=== PATIENT | male | born 1985 ===

== ENCOUNTER 2020-07-13 08:16 | Emergency (ER) | payer OTHER, SELFPAY ==
[2020-07-13 09:11] VITALS: BP 124/80; PULSE 85; RESP 16; TEMP 37.1; O2SAT 98; BMI 37.1
--- NOTE | 2020-07-13 09:24 | ED_ITS ---
HPI - Back Pain/Injury General Chief Complaint: Back Pain/Injury Stated Complaint: back pain Time Seen by Provider: 07/13/20 09:21 Source: patient Mode of arrival: ambulatory Limitations: no limitations History of Present Illness HPI Narrative: 34 y/o male otherwise healthy who presenting with worsening atraumatic left lower back pain x1 week. 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 He states the pain now radiates down his left leg and he is having difficultly walking. He denies numbness, tingling, leg weakness, urinary incontinence, hesitancy or frequency. He has not been taking any medications for the pain. MD elicited complaint: back pain Onset (ago): day(s) (7) Timing: constant Severity: moderate Similar Symptoms Previously: No Quality: sharp and aching Location: left lower back Radiation: left upper leg Exacerbating factors: movement and walking Relieving factors: immobilization Context: unknown Associated symptoms: difficulty walking and loss of sensation in lower extremities Related Data Previous Rx's Medication Instructions Recorded cyclobenzaprine 10 mg PO TID PRN #12 tab 07/13/20 ibuprofen 600 mg PO Q8H PRN #20 tab 07/13/20 lidocaine [Lidoderm] 1 patch TOPICAL DAILY #15 ea 07/13/20 tramadol 50 mg PO Q8H PRN #6 tab 07/13/20 Allergies Allergy/AdvReac Type Severity Reaction Status Date / Time No Known Allergies Allergy Verified 07/13/20 09:11 Review of Systems Review of Systems: Constitutional: No Fever, No Chills Cardiovascular: No Chest Pain, No SOB Respiratory: No Cough, No Sputum Gastrointestinal: No Nausea, No Vomiting, No Diarrhea, No abdominal Pain Genitourinary: No Dysuria, No Urinary Frequency, No Hematuria Musculoskeletal: + joint pain, + Myalgias Skin: No Skin Lesions, No rash Neuro: No Weakness, No Numbness Heme/Lymph: No Bruising, No Lymphadenopathy Endocrine: No Polyuria, No Polydipsia PMFSH Past Medical History Attestation statement: The following information was validated with the patient. Medical History Asthma Testicular cyst Social History Social History Smoking Status: Current every day smoker Use of substances other than those prescribed or required for medical reasons: No Advance Directives: No Advance Directives Information Provided: No Physical Exam Vital Signs: Vital Signs: Last Vital Signs Temp 98.7 F 07/13/20 09:11 Pulse 85 07/13/20 09:11 Resp 16 07/13/20 09:11 BP 124/80 07/13/20 09:11 Pulse Ox 98 07/13/20 09:11 Body Mass Index 37.1 Appearance: Alert. Oriented X3. No acute distress. HEENT: normal inspection CVS: Normal heart rate and rhythm. Pulses normal. Respiratory: No respiratory distress. Skin: Skin warm and dry. Normal skin color. Normal skin turgor. No rashes. Back: normal inspection, tender left upper lumbar area with limited spinal flexion due to pain. no spinal tenderness. +straight leg raise test Extremities: atraumatic Neuro: Oriented X 3. No motor deficit. No sensory deficit. walks with limping gait Course Course Course Narrative: 34 y/o male presenting with 1 week of left lower back pain, now radiating down left leg. No injury but does lifting at work. No red flag symptoms of LBP. XR normal. Given toradol for pain with some improvement. Will treat for sciatica with NSAID, muscle relaxer and PRN tramadol for severe pain. Management discussed with patient. He will follow up with his PCP next week for further management. Stable for d/c. MDM - Back Pain/Injury Differential Diagnosis Differential diagnosis: Likely lumbar radiculopathy, sciatica, strain of lumbar region, renal colic and pyelonephritis Medical Records Attestation: I reviewed the patient's medical records. Critical Care Time Critical Care Time Critical Care Time: No Discharge Plan Discharge Clinical Impression: Sciatica Qualifiers: Laterality: left Qualified Code(s): M54.32 - Sciatica, left side Patient Disposition: Home, Self-Care Instructions: Sciatica (ED), Acute Low Back Pain (ED), Lower Back Exercises (ED) Additional Instructions: Your x-ray today was normal. No bending, lifting >10 lbs or twisting. Use ice several times per day for 20 minutes at a time for the next 48 hours and then change to heat. Take medications as prescribed to help with pain and discomfort. Follow up with your Primary Care Doctor this week. If your pain worsens, if you develop new numbness, tingling, weakness, loss of function or incontinence call 911 or come back to the ER right away for evaluation. Prescriptions: New cyclobenzaprine 10 mg tablet 10 mg PO TID PRN (Reason: muscle spasm) Qty: 12 RF: 0 lidocaine [Lidoderm] 5 % adhesive patch,medicated 1 patch topical DAILY Qty: 15 RF: 0 ibuprofen 600 mg tablet 600 mg PO Q8H PRN (Reason: pain) Qty: 20 RF: 0 tramadol 50 mg tablet 50 mg PO Q8H PRN (Reason: severe pain (scale score 7-10)) Qty: 6 RF: 0 Stand Alone Forms: Work/School Release Discharge Date/Time: 07/13/20 10:09
--- NOTE | 2020-07-13 09:30 | XR_ITS ---
EXAMINATION: XR LUMBOSACRAL SPINE WITH OBLIQUES CLINICAL INFORMATION: Back pain COMPARISON: None TECHNIQUE: AP, both oblique, and lateral views of the lumbar spine. Lateral view of the lumbosacral junction. FINDINGS: Bone alignment is normal. No fracture or dislocation is seen. Disc spaces are normal. Facet joints are normal. Paraspinal soft tissues are normal. XR/XR lumbar spine 4V min IMPRESSION: Unremarkable examination.
[2020-07-13] MEDS: Acetaminophen 325 MG TABLET 975 MG PO (09:49)
[2020-07-13] MEDS: Ketorolac Tromethamine 30 MG/ML VIAL IM (09:51)
== END 2020-07-13 10:09 | disposition home or self-care (01) ==
LOC: HO.ED 09:54
PROVIDERS: Emergency Provider Internal Medicine
DX: M54.42 Lumbago with sciatica, left side (principal); F17.200 Nicotine dependence, unspecified, uncomplicated
CPT/HCPCS: 72110; 96372; 99283; 99284; J1885

== ENCOUNTER 2020-09-19 22:20 | Emergency (ER) | payer OTHER, SELFPAY ==
[2020-09-19 23:14] VITALS: BP 128/79; PULSE 81; RESP 16; TEMP 36.8; O2SAT 97; BMI 33.9
[2020-09-20] MEDS: oxyCODONE HCl Immed Release 5 MG TABLET 10 MG PO (00:07)
[2020-09-20] MEDS: dexAMETHasone 2 MG TABLET 10 MG PO (00:07)
--- NOTE | 2020-09-21 21:22 | ED.BACK ---
HPI - Back Pain/Injury General Chief Complaint: Back Pain/Injury Stated Complaint: back pain Time Seen by Provider: 09/19/20 23:32 Source: patient Mode of arrival: ambulatory Limitations: no limitations History of Present Illness HPI Narrative: pt with hx of chronic back pain for >10 years never had MRI, comes for increase low back pain for days radiating to L leg similar to that in past, no recent injury, no leg weakness no bladder or bowel involvement MD elicited complaint: back pain Pertinent past history: prior back pain Onset (ago): year(s) Timing: intermittent Severity: moderate Similar Symptoms Previously: Yes Quality: dull Location: lumbar spine Radiation: left upper leg and right upper leg Exacerbating factors: none Relieving factors: none Associated symptoms: denies other symptoms Related Data Previous Rx's Medication Instructions Recorded cyclobenzaprine 10 mg PO TID PRN #12 tab 07/13/20 ibuprofen 600 mg PO Q8H PRN #20 tab 07/13/20 lidocaine [Lidoderm] 1 patch TOPICAL DAILY #15 ea 07/13/20 tramadol 50 mg PO Q8H PRN #6 tab 07/13/20 erythromycin 5 mg/gram (0.5 %) eye 1 appl OPHTHALMIC (EYE) QID 7 Days 08/27/20 ointment #3.5 g cyclobenzaprine 10 mg PO Q8H #20 tab 09/19/20 oxycodone 5 mg PO Q6H PRN #20 tab 09/19/20 prednisone 40 mg PO DAILY #10 tab 09/19/20 Allergies Allergy/AdvReac Type Severity Reaction Status Date / Time No Known Allergies Allergy Verified 08/27/20 11:27 Review of Systems Review of Systems: Yes all other systems are reviewed and are negative [facility] Past Medical History Medical History Asthma Testicular cyst Social History Social History Alcohol intake: current Alcohol intake frequency: a few times a month Alcohol type: beer Smoking Status: Current every day smoker Physical Exam Vital Signs: Vital Signs: Last Vital Signs Temp 98.3 F 09/19/20 23:14 Pulse 81 09/19/20 23:14 Resp 16 09/19/20 23:14 BP 128/79 09/19/20 23:14 Pulse Ox 97 09/19/20 23:14 Body Mass Index 33.9 Const: General: cooperative Nutritional Appearance: average body habitus Orientation/consciousness: oriented to person, oriented to place and oriented to time Limitations: no limitations HENMT: Head: Yes normal to inspection Mouth: Normal oral and palatal mucosa present Eyes: General: appearance normal, both eyes and all related structures Pupils: Equal, round and reactive pupils present EOM: EOMs intact bilaterally Neck: Neck: Yes normal visual inspection and Yes full ROM Thyroid: Thyroid normal Lymphatic: no lymphadenopathy noted Resp: Effort & Inspection: normal respiratory effort and able to speak in complete sentences Auscultation: clear to auscultation bilaterally Cardio: Palpation: normal PMI Rate: regular rate Rhythm: regular rhythm and abnormal rhythm Heart sounds: S1 normal heart sound present and S2 normal heart sound present GI: Inspection: Yes normal to inspection Palpation (GI): Soft to palpation and nontender : General: Yes no CVA tenderness Back/Spine/Pelvis: Back: no CVA tenderness Thoracic/Lumbar Spine: thoracic and lumbar spine normal to inspection, paraspinal muscle tenderness, thoraco-lumbar spasm, lumbar spinal tenderness and straight leg raise positive left Skin: General skin exam: no rashes or lesions noted Neuro: General: oriented to person, oriented to place and oriented to time Cranial nerves: Yes CN's II-XII intact bilaterally and Yes Equal, round and reactive pupils present Cognition (Neuro): normal cognition Gait exam (Neuro): Normal gait present Motor exam (neuro): 5/5 motor strength present throughout Sensory Exam: Normal double simultaneous stimulation for sensation Extrem: General: Yes normal to inspection, Yes full ROM and Yes no pedal edema Psych: Mental Status: mental status grossly normal MDM - Back Pain/Injury MDM Narrative Medical decision making narrative: pt with chronic back pain for years increase pain to L leg similar to in past, no signs of cord compression , clinically L sciatica will discharge at home on analgesics and muscle relaxants Differential Diagnosis Differential diagnosis: Likely sciatica and strain of lumbar region Discharge Plan Discharge Clinical Impression: Strain of lumbar region Qualifiers: Encounter type: initial encounter Qualified Code(s): S39.012A - Strain of muscle, fascia and tendon of lower back, initial encounter Patient Disposition: Home, Self-Care Instructions: Chronic Back Pain (DC) Prescriptions: New cyclobenzaprine 10 mg tablet 10 mg PO Q8H Qty: 20 RF: 0 prednisone 20 mg tablet 40 mg PO DAILY Qty: 10 RF: 0 oxycodone 5 mg tablet 5 mg PO Q6H PRN (Reason: Pain, Moderate) Qty: 20 RF: 0 No Action cyclobenzaprine 10 mg tablet 10 mg PO TID PRN (Reason: muscle spasm) Qty: 12 RF: 0 lidocaine [Lidoderm] 5 % adhesive patch,medicated 1 patch topical DAILY Qty: 15 RF: 0 ibuprofen 600 mg tablet 600 mg PO Q8H PRN (Reason: pain) Qty: 20 RF: 0 tramadol 50 mg tablet 50 mg PO Q8H PRN (Reason: severe pain (scale score 7-10)) Qty: 6 RF: 0 erythromycin 5 mg/gram (0.5 %) ointment 1 appl ophthalmic (eye) QID 7 Days Qty: 3.5 RF: 0 Referrals: Katherin Fontenot MD [Physician] - 1 week Stand Alone Forms: Work/School Release Interventions: ED Discharge Assessment Last Done: 09/20/20 00:30 Discharge Date/Time: 09/20/20 00:52 Print Language: Lithuanian
== END 2020-09-20 00:52 | disposition home or self-care (01) ==
PROVIDERS: Emergency Provider Internal Medicine
DX: S39.012A Strain of muscle, fascia and tendon of lower back, initial encounter (principal); X58.XXXA Exposure to other specified factors, initial encounter; J45.909 Unspecified asthma, uncomplicated; F17.200 Nicotine dependence, unspecified, uncomplicated; Y93.9 Activity, unspecified; Y92.9 Unspecified place or not applicable; Y99.9 Unspecified external cause status
CPT/HCPCS: 99283; 99284; J8540

== ENCOUNTER 2020-12-15 12:30 | Emergency (ER) | payer OTHER, SELFPAY ==
--- NOTE | ~2020-12-15 | XR_ITS ---
EXAMINATION: XR SOFT TISSUE NECK CLINICAL INDICATION: Swallowed foreign body COMPARISON: None TECHNIQUE: 2 views of the soft tissue neck were obtained. FINDINGS: Soft tissue films of the neck demonstrate a normal larynx, pharynx and upper trachea. No soft tissue swelling or opaque foreign body is demonstrated. XR/XR soft tissue neck IMPRESSION: Unremarkable examination.
[2020-12-15 12:35] VITALS: BP 128/77; PULSE 110; RESP 18; TEMP 36.6; O2SAT 97; BMI 33.4
[2020-12-15] MEDS: Lidocaine HCl Viscous 2 % 15 ML SOLUTION MUCOUS MEM (13:58)
--- NOTE | 2020-12-15 14:12 | ED_ITS ---
HPI - Skin/Abscess/Foreign Bdy General Chief complaint: General Medical Stated complaint: swallowed foreign object Time Seen by Provider: 12/15/20 12:48 Source: patient and family Mode of arrival: ambulatory Limitations: language barrier (Italian Speaking ) History of Present Illness HPI narrative: 35-year-old male presenting to the ED with complaints of a possible foreign body in his throat. He reports he left his drink outside with there were a lot of bees and he believes he might a swallowed a bee. He reports that he feels something crawling in his right side of his throat. Denies any trouble swallowing or breathing. Although reports hoarseness. Denies any other symptoms complaints or concerns at this time. 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) Severity: mild Quality: foreign body sensation (crawling sensation ) Pain Consistency: constant Relieving factors: none Exacerbating factors: other (swallowing ) Context: other ( possible insect) Associated symptoms: other ( hoarseness of his voice) Treatments prior to arrival: other ( he drank tons of fluids) Related Data Previous Rx's Medication Instructions Recorded cyclobenzaprine 10 mg PO TID PRN #12 tab 07/13/20 ibuprofen 600 mg PO Q8H PRN #20 tab 07/13/20 lidocaine [Lidoderm] 1 patch TOPICAL DAILY #15 ea 07/13/20 tramadol 50 mg PO Q8H PRN #6 tab 07/13/20 erythromycin 5 mg/gram (0.5 %) eye 1 appl OPHTHALMIC (EYE) QID 7 Days 08/27/20 ointment #3.5 g cyclobenzaprine 10 mg PO Q8H #20 tab 09/19/20 oxycodone 5 mg PO Q6H PRN #20 tab 09/19/20 prednisone 40 mg PO DAILY #10 tab 09/19/20 Magic Mouthwash 5 ml PO BID #240 ml 12/15/20 Diphen/Lido/Antacid 1:1:1 Allergies Allergy/AdvReac Type Severity Reaction Status Date / Time No Known Allergies Allergy Verified 08/27/20 11:27 Review of Systems Review of Systems: Constitutional : No Weight loss, No Fever, No Chills, No Night Sweats, No Fatigue, NoMalaise ENT/Mouth: Positive foreign body sensation throat, No ear pain, No sore throat, No Difficulty swallowing Cardiovascular : No Chest Pain, No SOB, No Dyspnea on Exertion, No Orthopnea, NoEdema, No Palpitations Respiratory : No Cough, No Sputum, No Wheezing, No Dyspnea Gastrointestinal : No Nausea, No Vomiting, No abdominal pain, No Diarrhea, No blood streaked emesis, No coffee-ground emesis, No gross hematemesis, No blood streak stool, No gross hematochezia, No Melena Genitourinary : No irregular bleeding, No Dysuria, No Urinary Frequency, No Hematuria,No Urinary Incontinence, No Urgency, No Flank Pain Musculoskeletal : No joint pain, No Myalgias, No Joint Swelling Skin : No Skin Lesions, No rash Neuro : No Weakness, No Numbness, No Paresthesias, No Loss of Consciousness, NoDizziness, No Headache Psych : No Social Issues, Heme/Lymph: No Bruising, No Bleeding,No Lymphadenopathy Endocrine : No Polyuria, No Polydipsia, No Temperature Intolerance Yes all other systems are reviewed and are negative [facility] Past Medical History Attestation statement: The following information was validated with the patient. Medical History Asthma Testicular cyst Social History Social History Alcohol intake: current Alcohol intake frequency: a few times a month Alcohol type: beer Advance Directives: No Advance Directives Information Provided: No Physical Exam Vital Signs: Vital Signs: Last Vital Signs Temp 98 F 12/15/20 12:35 Pulse 110 H 12/15/20 12:35 Resp 18 12/15/20 12:35 BP 128/77 12/15/20 12:35 Pulse Ox 97 12/15/20 12:35 Body Mass Index 33.4 vital signs have been reviewed as normal and appeared to be correct. Blood pressure normal. Heart rate normal. Respiration rate normal. Temperature normal. Oxygen saturation normal. Appearance: Alert. Oriented X3. No acute distress. Head: Normal external exam. Normocephalic. Atraumatic. No Barro[place] signs noted. No raccoon eyes noted Eyes: PERRLA. EOMI. Conjunctiva and sclera normal. Eyelids normal. ENT: EAC normal. TM's Normal. Pharynx normal. Uvula midline. Moist mucous membranes. No trismus noted. No drooling noted. No muffled voice noted. no foreign bodies are noted. Neck: Normal inspection. Neck supple. FROM. No adenopathy. Thyroid Normal. No meningeal signs. No neck mass noted. CVS: Normal heart rate and rhythm. Heart sound normal. Pulses normal throughout. No murmurs/rales/gallops. Respiratory: No respiratory distress. Painless inspiration. Breath sounds normal. No wheezes/rales/rhonchi noted. Chest nontender. No accessory muscle usage noted or decreased air movement noted. Abdomen: Soft and nontender. Bowel sounds normal in all 4 quadrants. No distention noted. No organomegaly noted. No visible injury noted. Back: No CVA tenderness. Full range of motion noted. No rashes/lesion/induration/fluctuance or signs of infection noted. Skin: Skin warm and dry. Normal skin color. Normal skin turgor. No rashes/lesions/lacerations noted. Extremities: No lower extremity edema. Extremities exhibit normal range of motion. Extremities nontender. Neuro: Oriented X 3. No motor deficit. No sensory deficit. Reflexes normal. Normal steady gait. No focal neuro deficits noted. Vascular: + radial pulses/+ 2 distal pedal pulses/+2 dorsalis pedis b/l. Normal cap refill. No cyanosis noted to upper extremity nails and lower extremity toes nails. Course Course Course Narrative: X-ray obtained and no foreign bodies noted. I gave the patient viscous lidocaine and he reports symptomatic relief. Patient does not have any trouble swallowing or breathing. Vital signs are stable within normal limits. No trismus or drooling. Will DC home with instructions return if any new or worsening symptoms to follow up with primary care provider. Patient understands agrees with this plan. MDM - Skin/Abscess/Foreign Bdy Medical Records Attestation: I reviewed the patient's medical records. Imaging Data Soft tissue neck x-ray: Attestation: I personally reviewed and interpreted this imaging study as follows: Radiologist's impression: FINDINGS: Soft tissue films of the neck demonstrate a normal larynx, pharynx and upper trachea. No soft tissue swelling or opaque foreign body is demonstrated. XR/XR soft tissue neck IMPRESSION: Unremarkable examination. Discharge Plan Discharge Clinical Impression: Foreign body, swallowed Patient Disposition: Home, Self-Care Instructions: Foreign Body Ingestion (ED) Prescriptions: New Magic Mouthwash Diphen/Lido/Antacid 1:1:1 240 mL suspension 5 ml PO BID Qty: 240 RF: 0 No Action cyclobenzaprine 10 mg tablet 10 mg PO TID PRN (Reason: muscle spasm) Qty: 12 RF: 0 lidocaine [Lidoderm] 5 % adhesive patch,medicated 1 patch topical DAILY Qty: 15 RF: 0 ibuprofen 600 mg tablet 600 mg PO Q8H PRN (Reason: pain) Qty: 20 RF: 0 tramadol 50 mg tablet 50 mg PO Q8H PRN (Reason: severe pain (scale score 7-10)) Qty: 6 RF: 0 cyclobenzaprine 10 mg tablet 10 mg PO Q8H Qty: 20 RF: 0 prednisone 20 mg tablet 40 mg PO DAILY Qty: 10 RF: 0 oxycodone 5 mg tablet 5 mg PO Q6H PRN (Reason: Pain, Moderate) Qty: 20 RF: 0 erythromycin 5 mg/gram (0.5 %) ointment 1 appl ophthalmic (eye) QID 7 Days Qty: 3.5 RF: 0 Referrals: Katherin Fontenot MD [Primary Care Provider] - 2 days Print Language: Italian
== END 2020-12-15 14:42 | disposition home or self-care (01) ==
PROVIDERS: Emergency Provider Emergency Medicine; PCP Internal Medicine
DX: T17.208A Unspecified foreign body in pharynx causing other injury, initial encounter (principal); J45.909 Unspecified asthma, uncomplicated; X58.XXXA Exposure to other specified factors, initial encounter; Y93.9 Activity, unspecified; Y92.89 Other specified places as the place of occurrence of the external cause; Y99.9 Unspecified external cause status
CPT/HCPCS: 70360; 99283

== ENCOUNTER 2020-12-17 16:00 | Emergency (ER) | payer OTHER, SELFPAY | END 2020-12-17 18:50 | disposition left against medical advice (07) | PROVIDERS: Emergency Provider Emergency Medicine | DX: J02.9 Acute pharyngitis, unspecified (principal) ==

== ENCOUNTER 2021-02-08 19:12 | Emergency (ER) | payer OTHER, SELFPAY ==
[2021-02-08 19:29] VITALS: BP 121/78; PULSE 86; RESP 16; TEMP 36.6; O2SAT 97; BMI 35.5
--- NOTE | 2021-02-08 21:50 | ED.BACK ---
HPI - Back Pain/Injury General Chief Complaint: Back Pain/Injury Stated Complaint: Back pain injury Time Seen by Provider: 02/08/21 21:45 History of Present Illness HPI Narrative: Patient complains of left-sided low back pain after lifting boxes at work today no radiation of pain, no numbness weakness or tingling, no changes to bowel or bladder no fever no chills no other injury Related Data Previous Rx's Medication Instructions Recorded cyclobenzaprine 5 mg tablet 5 mg PO TID PRN #10 tab 02/08/21 ibuprofen 600 mg tablet 600 mg PO Q6H PRN #20 tab 02/08/21 oxycodone 5 mg tablet 5 mg PO Q6H PRN #20 tab 02/08/21 albuterol sulfate 2.5 mg INHALATION Q4-6H PRN 30 02/14/21 Days #75 ml albuterol sulfate 90 mcg/actuation 2 puff INHALATION Q6H PRN 30 Days 02/14/21 aerosol inhaler (ProAir HFA) #6.7 g bupropion HCl 150 mg 24 hr tablet, 150 mg PO QAM 90 Days #90 tab 02/14/21 extended release methocarbamol 750 mg tablet 750 mg PO Q8H 30 Days #90 tab 02/14/21 nebulizers (Aeroneb Go Nebulizer) #1 ea 02/14/21 Allergies Allergy/AdvReac Type Severity Reaction Status Date / Time No Known Allergies Allergy Verified 02/14/21 14:33 Review of Systems Review of Systems: Positive for left-sided low back pain Negatives are no fever no chills no dizziness no weakness no headache no neck pain no chest pain or shortness of breath no abdominal pain no changes to bowel or bladder no dysuria no frequency no incontinence no muscle weakness no loss of sensation Yes all other systems are reviewed and are negative PMFSH Past Medical History Source: nursing notes reviewed Medical History (Updated 02/14/21 @ 16:07 by Katherin Irby MD) Asthma Left sided sciatica Mild persistent asthma Mild recurrent major depression Obesity (BMI 35.0-39.9 without comorbidity) Testicular cyst Social History Social History Housing: House Alcohol intake: current Alcohol intake frequency: a few times a month Alcohol type: beer Patient Tobacco Use Status: Current everyday Tobacco user Cigarettes Per Day: 10 e-Cigarette/Vaping Use: Never Used Second Hand Smoke Exposure: No service: No Current occupational status: employed Physical Exam Vital Signs: Vital Signs: Last Vital Signs Temp 97.9 F 02/08/21 19:29 Pulse 86 02/08/21 19:29 Resp 16 02/08/21 19:29 BP 121/78 02/08/21 19:29 Pulse Ox 97 02/08/21 19:29 Body Mass Index 35.5 General appearance no acute distress Head is normocephalic atraumatic Neck is supple nontender Respiratory no distress The back had left lower lumbar soft tissue paraspinal tenderness, no bony tenderness no CVA tenderness, skin was normal no rash no wound no redness Extremities full range of motion x4 Neuro no focal motor or sensory deficits Course Course Course Narrative: Patient with musculoskeletal back pain is treated with analgesic and advised to follow with [facility] for work-related injury Discharge Plan Discharge Clinical Impression: Lumbar strain Patient Disposition: Home, Self-Care Additional Instructions: Follow with [facility] for work related injury Return any time any worse condition or any concerns Prescriptions: New cyclobenzaprine 5 mg tablet 5 mg PO TID PRN (Reason: muscle spasm) Qty: 10 RF: 0 oxycodone 5 mg tablet 5 mg PO Q6H PRN (Reason: pain) Qty: 20 RF: 0 ibuprofen 600 mg tablet 600 mg PO Q6H PRN (Reason: pain) Qty: 20 RF: 0 No Action bupropion HCl 150 mg tablet extended release 24 hr 150 mg PO QAM 90 Days Qty: 90 RF: 0 albuterol sulfate 2.5 mg /3 mL (0.083 %) solution for nebulization 2.5 mg inhalation Q4-6H PRN (Reason: shortness of breath or wheezing) 30 Days Qty: 75 RF: 1 (DME) Aeroneb Go Nebulizer Misc See Rx Instructions .Route Qty: 1 RF: 0 albuterol sulfate [ProAir HFA] 90 mcg/actuation HFA aerosol inhaler 2 puff inhalation Q6H PRN (Reason: shortness of breath or wheezing) 30 Days Qty: 6.7 RF: 2 methocarbamol 750 mg tablet 750 mg PO Q8H 30 Days Qty: 90 RF: 0 Referrals: [facility] [Provider Group] - 2 days (Back pain after lifting boxes at work) Stand Alone Forms: Work/School Release Interventions: ED Discharge Assessment Last Done: 02/08/21 22:29 Discharge Date/Time: 02/08/21 22:31
[2021-02-08] MEDS: Ketorolac Tromethamine 15 MG/ML VIAL 30 MG IM (22:12)
== END 2021-02-08 22:31 | disposition home or self-care (01) ==
PROVIDERS: Emergency Provider Emergency Medicine
DX: S39.012A Strain of muscle, fascia and tendon of lower back, initial encounter (principal); X50.0XXA Overexertion from strenuous movement or load, initial encounter; F17.210 Nicotine dependence, cigarettes, uncomplicated; Y93.89 Activity, other specified; Y92.812 Truck as the place of occurrence of the external cause; Y99.0 Civilian activity done for income or pay
CPT/HCPCS: 96372; 99284; J1885

== ENCOUNTER 2021-04-22 09:44 | Emergency (ER) | payer OTHER, SELFPAY ==
--- NOTE | ~2021-04-22 | XR_ITS ---
EXAMINATION: XR LUMBOSACRAL SPINE CLINICAL INFORMATION: Back pain COMPARISON: 07/13/2020 TECHNIQUE: Three views of the lumbosacral spine. FINDINGS: The vertebral bodies and posterior elements are normal. The disc spaces are preserved and the vertebral alignment is normal. Small endplate osteophytes at L5-S1 noted. The sacroiliac joints are symmetric. The sacrum is intact. Normal bowel gas pattern. The paraspinal soft tissues are normal. XR/XR lumbar spine 2-3V IMPRESSION: Tiny endplate osteophytes at L5-S1. Otherwise unremarkable appearance of the lumbar spine.
[2021-04-22 10:35] VITALS: BP 131/77; PULSE 56; RESP 18; TEMP 36.2; O2SAT 98; BMI 32.5
--- NOTE | 2021-04-22 11:17 | ED_ITS ---
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 Back pain started 2 months ago, described as intermittent pain localized to the lower back radiates down to the left thigh, patient declined any urinary or stool incontinence, no loss of sensation or weakness. No trauma to the back, no recent strenuous activity. Related Data Previous Rx's Medication Instructions Recorded ibuprofen 600 mg tablet 600 mg PO Q6H PRN #20 tab 02/08/21 albuterol sulfate 2.5 mg INHALATION Q4-6H PRN 30 02/14/21 Days #75 ml albuterol sulfate 90 mcg/actuation 2 puff INHALATION Q6H PRN 30 Days 02/14/21 aerosol inhaler (ProAir HFA) #6.7 g bupropion HCl 150 mg 24 hr tablet, 150 mg PO QAM 90 Days #90 tab 02/14/21 extended release methocarbamol 750 mg tablet 750 mg PO Q8H 30 Days #90 tab 02/14/21 nebulizers (Aeroneb Go Nebulizer) #1 ea 02/14/21 lidocaine 5 % topical patch 1 patch TOPICAL DAILY 15 Days #15 03/28/21 ea ibuprofen 600 mg tablet 600 mg PO TID PRN #14 tab 04/22/21 oxycodone 5 mg tablet 5 mg PO Q8H PRN #14 tab 04/22/21 Allergies Allergy/AdvReac Type Severity Reaction Status Date / Time No Known Allergies Allergy Verified 03/27/21 09:11 Review of Systems Review of Systems: All other systems are reviewed and are negative Constitutional: Reports as per HPI and Reports no additional constitutional complaints Eyes: Reports as per HPI and Reports no additional eye complaints Reports system reviewed and no additional complaints, except as documented Cardiovascular: Reports as per HPI and Reports no additional cardiovascular complaints Respiratory: Reports as per HPI and Reports no additional respiratory complaints Gastrointestinal: Reports as per HPI and Reports no additional gastrointestinal complaints Genitourinary: Reports no additional female genitourinary complaints Musculoskeletal: Reports no additional musculoskeletal complaints Skin/Breast: Reports system reviewed and no additional complaints, except as docu Psychiatric: Reports no additional psychiatric complaints Endocrine: Reports no additional endocrine complaints Hematologic/Lymphatic: Reports no additional hematologic/lymphatic complaints Allergic/Immunologic: Reports no additional allergic/immunologic complaints Reports system reviewed and no additional complaints, except as documented and Reports Abnormal speech present [facility] Past Medical History Medical History Asthma Class 1 obesity due to excess calories with body mass index (BMI) of 34.0 to 34.9 in adult Left sided sciatica Lumbar back pain with radiculopathy affecting left lower extremity Mild persistent asthma Mild recurrent major depression Obesity (BMI 35.0-39.9 without comorbidity) Tenderness of scrotum Testicular cyst Surgical History No pertinent past surgical history Family History Family History Mother Hypertension Father No problems noted. Social History Social History Housing: House Alcohol intake: current Alcohol intake frequency: a few times a month Alcohol type: beer Patient Tobacco Use Status: Current everyday Tobacco user Tobacco use type: Cigarette Cigarette Packs Per Day: 1 Cigarettes Per Day: 20 e-Cigarette/Vaping Use: Never Used Second Hand Smoke Exposure: No Advance Directives: No Advance Directives Information Provided: No service: No Current occupational status: employed Current occupational exposures/hazards: No Physical Exam 2 Vital Signs: Vital Signs: Last Vital Signs Temp 97.2 F 04/22/21 10:35 Pulse 56 04/22/21 10:35 Resp 18 04/22/21 10:35 BP 131/77 04/22/21 10:35 Pulse Ox 98 04/22/21 10:35 Body Mass Index 32.5 vital signs have been reviewed as appeared to be correct. Blood pressure normal. Heart rate normal. Respiration rate normal. Temperature normal. Oxygen saturation normal. Appearance: Alert. Oriented X3. No acute distress. Head: Normal external exam. Normocephalic. Atraumatic. No [place] signs noted. No raccoon eyes noted Eyes: PERRLA. EOMI. Conjunctiva and sclera normal. Eyelids normal. ENT: TM's Normal. Pharynx normal. Uvula midline. Moist mucous membranes. No trismus noted. No drooling noted. No muffled voice noted. Neck: Normal inspection. Neck supple. FROM. No adenopathy. Thyroid Normal. No meningeal signs. No neck mass noted. CVS: Normal heart rate and rhythm. Heart sound normal. No murmurs noted. Pulses normal throughout. Respiratory: No respiratory distress. Painless inspiration. Breath sounds normal. No wheezes/rales/rhonchi noted. Chest nontender. No accessory muscle usage noted or decreased air movement noted. Abdomen: Soft and nontender. Bowel sounds normal in all 4 quadrants. No distention noted. No organomegaly noted. No visible injury noted. Back: No CVA tenderness. Full range of motion noted. Midline lumbar region tenderness, no step-off, no deformity. Skin: Skin warm and dry. Normal skin color. Normal skin turgor. No rashes/lesions/lacerations noted. Extremities: No lower extremity edema. Extremities exhibit normal range of motion. Extremities nontender. Neuro: Oriented X 3. Cranial nerve exam: II-XII are grossly intact , light touch sensation and pinprick is intact in the perianal area. No motor deficit. No sensory deficit. Reflexes normal. Course Course Course Narrative: assessment and plan. 35-year-old male with back pain exam is consistent with sciatica, patient does not want x-rays, don't try NSAIDs, patient was given oxycodone in the ED to control his pain, patient works in a [employer] business. Patient was instructed to rest, heating pad, prescribed oxycodone, high dose of ibuprofen. MDM - Back Pain/Injury Lab Data Attestation: I reviewed the patient's lab results. Labs: Lab Results 04/22/21 Range/Units 12:09 Urine Color YELLOW Urine Appearance CLEAR Urine pH 7.0 (5.0-8.0) Ur Specific [place] 1.015 (1.005-1.025) Urine Protein NEG (NEG-TRACE) MG/DL Urine Glucose (UA) NEG (NEG) MG/DL Urine Ketones NEG (NEG) MG/DL Urine Blood NEG (NEG) Urine Nitrite NEG (NEG) Ur Leukocyte Esterase NEG (NEG) Imaging Data lumbar spine x-ray: Radiologist's impression: Tiny endplate osteophytes at L5-S1. Otherwise unremarkable appearance of the lumbar spine. Discharge Plan Discharge Clinical Impression: Acute left lumbar radiculopathy Patient Disposition: Home, Self-Care Instructions: Lumbar Radiculopathy (ED) Prescriptions: New ibuprofen 600 mg tablet 600 mg PO TID PRN (Reason: pain) Qty: 14 RF: 0 oxycodone 5 mg tablet 5 mg PO Q8H PRN (Reason: pain) Qty: 14 RF: 0 No Action lidocaine 5 % adhesive patch,medicated 1 patch topical DAILY 15 Days Qty: 15 RF: 0 ibuprofen 600 mg tablet 600 mg PO Q6H PRN (Reason: pain) Qty: 20 RF: 0 bupropion HCl 150 mg tablet extended release 24 hr 150 mg PO QAM 90 Days Qty: 90 RF: 0 albuterol sulfate 2.5 mg /3 mL (0.083 %) solution for nebulization 2.5 mg inhalation Q4-6H PRN (Reason: shortness of breath or wheezing) 30 Days Qty: 75 RF: 1 (DME) Aeroneb Go Nebulizer Misc See Rx Instructions .Route Qty: 1 RF: 0 albuterol sulfate [ProAir HFA] 90 mcg/actuation HFA aerosol inhaler 2 puff inhalation Q6H PRN (Reason: shortness of breath or wheezing) 30 Days Qty: 6.7 RF: 2 methocarbamol 750 mg tablet 750 mg PO Q8H 30 Days Qty: 90 RF: 0 Referrals: Katherin Fontenot MD [Primary Care Provider] - 2 days Stand Alone Forms: Work/School Release
[2021-04-22] MEDS: Ibuprofen 800 MG TABLET PO (11:34)
[2021-04-22 12:16] LABS: Appearance Urine CLEAR; Color Urine YELLOW; Glucose Urine UA NEG (NEG); Leukocyte Esterase Urine NEG (NEG); Nitrite Urine NEG (NEG); Specific Gravity - Urine 1.015 (1.005-1.025); Urine Blood NEG (NEG); Urine Ketones NEG (NEG); Urine Protein NEG (NEG-TRACE)
[2021-04-22] MEDS: oxyCODONE HCl Immed Release 5 MG TABLET PO (13:01)
== END 2021-04-22 13:10 | disposition home or self-care (01) ==
PROVIDERS: Emergency Provider Emergency Medicine; PCP Internal Medicine
DX: M54.16 Radiculopathy, lumbar region (principal); J45.30 Mild persistent asthma, uncomplicated
CPT/HCPCS: 72100; 81003; 99283; 99284

== ENCOUNTER 2021-05-22 17:55 | Outpatient (REF) | payer OTHER, SELFPAY ==
--- NOTE | ~2021-05-22 | MR_ITS ---
EXAMINATION: MR LUMBAR SPINE WITHOUT CONTRAST CLINICAL INFORMATION: Left-sided sciatica. COMPARISON: Lumbar spine radiographs 04/22/2021. TECHNIQUE: MRI of the lumbar spine was obtained using routine sequences without contrast. FINDINGS: Alignment is normal. Vertebral heights are preserved.. Minimal type I degenerative endplate changes at L5-S1. Type II endplate changes are also visualized at T10-T11 and T11-T12. There is slight loss of intervertebral disc height and T2 signal intensity at L5-S1 related to disc degeneration. The tip of the conus medullaris is located at L1. No mass effect on the conus. Visualized distal cord signal intensity is normal. At L1-L2, L2-L3, L3-L4, and L4-L5 the annular contours are normal. No canal or neuroforaminal compromise at these 4 levels. At L5-S1 there is a broad left central to subarticular protrusion superimposed upon an asymmetrically bulging disc to the right. No canal stenosis. There is asymmetric narrowing of the left subarticular zone causing and subtle displacement of the left traversing S1 nerve roots. Mild to moderate mass effect on the right L5 foraminal nerve root. Limited visualization of the retroperitoneal anatomy reveals no abnormal finding. Psoas and paraspinal muscle groups are symmetric. MR/MR lumbar spine wo con IMPRESSION: There is a broad left central to subarticular protrusion superimposed upon an asymmetrically bulging disc to the right at the level of L5-S1 that causes mild to moderate mass effect on the right L5 foraminal nerve root and subtle displacement of the left traversing S1 nerve roots. Otherwise no substantial mass effect on traversing or foraminal nerve roots elsewhere within the lumbar spine. No canal stenosis.
== END 2021-05-22 17:56 | disposition home or self-care (01) ==
LOC: HO.MRI 17:55
PROVIDERS: Visit Provider Internal Medicine
DX: M54.32 Sciatica, left side (principal); M54.16 Radiculopathy, lumbar region
CPT/HCPCS: 72148

== ENCOUNTER 2021-06-06 16:00 | Outpatient (RCR) | payer OTHER, SELFPAY ==
--- NOTE | 2021-05-02 18:30 | MHC.PT.EP ---
[facility] [place] Office [place] Office [place] Office [address] Jarred Lloyd [address] [phone] F: [phone] F: [phone] F: [phone] F: [phone] Physical Therapy Plan of Care Date of Evaluation: Date of Surgery: Diagnosis: sciatica, L side Assessment: Pt is 35yo M who presents to PT with low back pain radiating into LLE. He presents with current impairments in pain, decreased lumbar ROM, decreased core stab, decreased LE strength. He is extremely TTP throughout lumbar PS and QL L>R. He has fair tolerance for exercise 2* increase in pain this date. He is limited functionally by prolonged sitting, prolonged standing, walking, and stair navigation. He is a good candidate for skilled PT services to address current impairments in order to facilitate return to PLOF. He will be seen for PT 2x/week for 4 weeks and will be reassessed at that time. Frequency and Duration: The patient will be seen 2x/week for 4 weeks Short Term Goals: Pt will be I with HEP to promote self management of symptoms Pt will have centralization of symptoms Usp Goals: Pt will demonstrate full ROM throughout lumbar spine Pt will demonstrate improved posture and squatting mechanics to assist with work related tasks Pt will demonstrate improvements in functional mobility as evidenced by statistically significant improvement in Modified Oswestry Low Back Pain Disability Questionnaire Treatment Plan: Modalities to reduce pain, spasms and effusion. Manual therapy to restore motion and function. Therapeutic exercise to improve strength and flexibility. Neuromuscular re-education for posture and balance. Therapeutic activities to return to functional activities of daily living. Electronically signed by: Eulalia Ivory, PT, DPT Please sign and return to therapist. Thank you for your referral.
--- NOTE | 2021-06-11 11:37 | MHC.PT.DC ---
[facility] [place] [facility] [place] [facility] [place] Office [address] Jarred Lloyd [address] [phone] F: [phone] F: [phone] F: [phone] F: [phone] Physical Therapy Discharge Report Diagnosis: sciatica, L side Date of Surgery: Date of Evaluation: 05/01/21 Date of Discharge: 06/11/21 Treatments to Date: 8 Cancellations to Date: No Shows to Date: Discharge Status: Achieved Goals Improved Function Independent with HEP Discharge Summary: Pt was seen for skilled PT services from 05/01/21-06/06/21. Pt has made excellent progress since SOC. He has improved lumbar ROM noted throughout functional tasks and has improved hip/glute strengthening along with core stability. He has had an overall decrease in pain since SOC. Pt reports no further questions or concerns for PT at last attended visit 06/06/21. Provided pt with updated, printed copy of HEP on last attended visit. Pt is being D/C from skilled PT services. No further PT indicated at this time. Electronically signed by: Eulalia Ivory, PT, DPT Please sign and return to therapist. Thank you for your referral.
== END 2021-06-11 11:36 | disposition home or self-care (01) ==
LOC: HO.PT 16:00
PROVIDERS: PCP Internal Medicine; Visit Provider Internal Medicine
DX: M54.32 Sciatica, left side (principal)
CPT/HCPCS: 97014; 97110; 97112; 97140; 97162; 97530

== ENCOUNTER 2021-06-24 14:19 | Outpatient (REF) | payer OTHER, SELFPAY ==
[2021-06-24 15:11] LABS: Influenza A PCR NEGATIVE (Negative); Influenza B PCR NEGATIVE (Negative); Resp Syncy Virus RNA Qual PCR NEGATIVE (Negative); SARS COV2 PCR INHOUSE POSITIVE (Negative)
== END 2021-06-24 14:20 | disposition home or self-care (01) ==
LOC: HO.LNP 14:19
PROVIDERS: Visit Provider Physician Assistant
DX: R11.0 Nausea (principal); Z20.822 Contact with and (suspected) exposure to COVID-19
CPT/HCPCS: 0241U

== ENCOUNTER → 2021-08-21 13:02 | Outpatient (BNVA) | payer OTHER, SELFPAY | PROVIDERS: PCP Internal Medicine; Visit Provider Nurse Practitioner Family | DX: M47.816 Spondylosis without myelopathy or radiculopathy, lumbar region (principal); M53.3 Sacrococcygeal disorders, not elsewhere classified | CPT/HCPCS: 99202 ==

== ENCOUNTER 2021-09-17 06:07 | Outpatient (REF) | payer OTHER, SELFPAY ==
--- NOTE | ~2021-09-17 | FL_ITS ---
EXAMINATION: XR FLUOROSCOPY WITH IMAGES CLINICAL INFORMATION: Sacrococcygeal disorder. COMPARISON: None. TECHNIQUE: Fluoroscopy performed by Dr. Mariee. Fluoroscopy time: 0.2 minutes DAP: 1.3 Gycm2 Images: 1 FINDINGS: Image demonstrates needle placement over the inferior left sacroiliac joint. FL/FL guidance in treatment room IMPRESSION: Fluoroscopy guidance for pain management procedure.
== END 2021-09-17 06:08 | disposition home or self-care (01) ==
LOC: HO.RADIR 06:07
PROVIDERS: Visit Provider Anesthesiology
DX: M53.3 Sacrococcygeal disorders, not elsewhere classified (principal); M47.816 Spondylosis without myelopathy or radiculopathy, lumbar region; E66.01 Morbid (severe) obesity due to excess calories; J45.30 Mild persistent asthma, uncomplicated; F17.210 Nicotine dependence, cigarettes, uncomplicated; F33.0 Major depressive disorder, recurrent, mild; Z68.33 Body mass index [BMI] 33.0-33.9, adult
CPT/HCPCS: 27096; J3300; Q9967

== ENCOUNTER → 2021-10-15 08:40 | Outpatient (BNVA) | payer OTHER, SELFPAY | PROVIDERS: PCP Internal Medicine; Visit Provider Nurse Practitioner Family | DX: M47.816 Spondylosis without myelopathy or radiculopathy, lumbar region (principal); M53.3 Sacrococcygeal disorders, not elsewhere classified; M62.838 Other muscle spasm | CPT/HCPCS: 99212 ==

== ENCOUNTER 2022-04-24 10:40 | Emergency (ER) | payer OTHER, SELFPAY ==
--- NOTE | ~2022-04-24 | XR_ITS ---
EXAMINATION: XR LUMBOSACRAL SPINE CLINICAL INFORMATION: Back pain, injury COMPARISON: 04/22/2021 TECHNIQUE: Three views of the lumbosacral spine. FINDINGS: Lumbar vertebra have normal height and alignment. No evidence of fractures in the anterior or posterior elements. At L5-S1, there is mild narrowing of the disc space with mild endplate sclerosis and small osteophytes. Findings are similar to those seen on prior exam from 04/22/2021. Sacrum and sacroiliac joints are unremarkable. The soft tissues are grossly normal. XR/XR lumbar spine 2-3V IMPRESSION: * No fracture or malalignment of the lumbar spine. * Mild discovertebral degenerative change of L5-S1.
[2022-04-24 10:58] VITALS: BP 142/93; PULSE 71; RESP 18; TEMP 36.5; O2SAT 98; BMI 35.5
--- NOTE | 2022-04-24 13:33 | ED.BACK ---
HPI - Back Pain/Injury General Chief Complaint: Back Pain/Injury Stated Complaint: Back Pain No Injury Time Seen by Provider: 04/24/22 12:42 Source: patient, RN notes reviewed and old records reviewed Mode of arrival: ambulatory Limitations: no limitations and language barrier History of Present Illness HPI Narrative: 36-year-old male with past medical history of SI joint pain, spondylosis of lumbar spine, obesity, asthma, depression, left-sided sciatica is here today after sustaining back injury at work. Patient states that he was moving heavy object and twisted to the left and started with left gluteal area and left lower back pain. Patient denies any radiation to his lower extremities, to his groin. Denies any urinary or fecal incontinence. Patient reports that he works at [employer] and he frequently has to move heavy objects. Patient has seen pain. Patient had appointment with them in September for SIJ joint injection perform 09/17/2021 patient reports that he was feeling well until he injured his back yesterday MD elicited complaint: back pain and back injury Pertinent past history: prior back pain Onset (ago): day(s) Related Data Previous Rx's Medication Instructions Recorded ibuprofen 600 mg tablet 600 mg PO Q6H PRN pain #20 tabs 02/08/21 albuterol sulfate 2.5 mg/3 mL 2.5 mg (3 mL) inhalation Q4-6H PRN 02/14/21 (0.083 %) solution for nebulization shortness of breath or wheezing 30 days #75 mL albuterol sulfate 90 mcg/actuation 2 puff inhalation Q6H PRN 02/14/21 aerosol inhaler (ProAir HFA) shortness of breath or wheezing 30 days #6.7 grams nebulizers (Aeroneb Go Nebulizer) #1 ea 02/14/21 lidocaine 5 % topical patch 1 patch topical DAILY 15 days #15 03/28/21 ea ibuprofen 600 mg tablet 600 mg PO TID PRN pain #14 tabs 04/22/21 oxycodone 5 mg tablet 5 mg PO Q8H PRN pain #14 tabs 04/22/21 bupropion HCl 150 mg 24 hr tablet, 150 mg PO QAM 90 days #90 tabs 05/08/21 extended release ondansetron HCl 4 mg tablet 4 mg PO Q8-12H PRN nausea and 06/24/21 (Zofran) vomiting #10 tabs tizanidine 4 mg tablet 4 mg PO BEDTIME PRN muscle 08/21/21 spasticity #30 tabs baclofen 5 mg tablet 5 mg PO BID PRN muscle spasm #60 10/15/21 tabs cyclobenzaprine 10 mg tablet 10 mg PO BID PRN muscle spasm #20 04/24/22 tabs ibuprofen 600 mg tablet 600 mg PO Q8H PRN pain #20 tabs 04/24/22 Allergies Allergy/AdvReac Type Severity Reaction Status Date / Time No Known Allergies Allergy Verified 10/15/21 08:55 [facility] Past Medical History Medical History (Updated 04/24/22 @ 15:11 by Halie Small [facility] Asthma Class 1 obesity due to excess calories with body mass index (BMI) of 34.0 to 34.9 in adult Left sided sciatica Lumbar back pain with radiculopathy affecting left lower extremity Mild persistent asthma Mild recurrent major depression Obesity (BMI 35.0-39.9 without comorbidity) Protrusion of lumbar intervertebral disc Tenderness of scrotum Testicular cyst Surgical History No pertinent past surgical history Family History Family History Mother Hypertension Father No problems noted. Social History Social History Housing: House Alcohol intake: current Alcohol intake frequency: a few times a month Alcohol type: beer Patient Tobacco Use Status: Current everyday Tobacco user Tobacco use type: Cigarette Cigarette Packs Per Day: 1 Cigarettes Per Day: 20 e-Cigarette/Vaping Use: Never Used Second Hand Smoke Exposure: No Advance Directives: No Advance Directives Information Provided: Yes service: No Current occupational status: employed Current occupational exposures/hazards: No Physical Exam Vital Signs: Vital Signs: Last Vital Signs Temp 97.7 F 04/24/22 10:58 Pulse 71 04/24/22 10:58 Resp 18 04/24/22 10:58 BP 142/93 H 04/24/22 10:58 Pulse Ox 98 04/24/22 10:58 O2 Del Method 04/24/22 10:58 BMI result Body Mass Index 35.5 Const: General: healthy appearing, no acute distress and well developed Nutritional Appearance: well nourished Orientation/consciousness: patient oriented x3 HEENT: Head: Yes normal to inspection, Yes normocephalic and Yes atraumatic Face and sinus: Yes normal facial exam Mouth: Normal oral and palatal mucosa present Throat: Yes posterior oropharynx normal, Yes tonsils normal and Yes uvula midline Eyes: General: appearance normal, both eyes and all related structures Neck: Neck: Yes normal visual inspection, Yes full ROM and Yes trachea midline Thyroid: Thyroid normal Resp: Effort & Inspection: normal respiratory effort, able to speak in complete sentences, no tracheal deviation and symmetric chest movement Auscultation: clear to auscultation bilaterally : General: Yes no CVA tenderness Back/Spine/Pelvis: Back: no CVA tenderness Cervical Spine: normal cervical lordosis Thoracic/Lumbar Spine: thoracic and lumbar spine normal to inspection and No paraspinal muscle tenderness Pelvis: no pain with anterior-posterior compression Skin: General skin exam: elasticity normal, turgor normal and dry skin Neuro: General: patient oriented x3 Psych: Appearance: grossly normal Mental Status: mental status grossly normal Speech and movement: Normal speech and movement present Affect: normal affect Attitude: cooperative Thought process: Normal thought process present Thought content: Normal thought content present Insight: Good insight present (Psych) Judgement: Good judgement present (Psych) Course Course Course Narrative: 36-year-old male with past medical history of SI joint pain, spondylosis of lumbar spine, obesity, asthma, depression, left-sided sciatica is here today after sustaining back injury at work. Patient states that he was moving heavy object and twisted to the left and started with left gluteal area and left lower back pain. Patient denies any radiation to his lower extremities, to his groin. Denies any urinary or fecal incontinence. Patient reports that he works at [employer] and he frequently has to move heavy objects. Patient has seen pain. Patient had appointment with them in September for SI joint injection perform 09/17/2021 patient reports that he was feeling well until he injured his back yesterday. Upon exam patient reports tenderness to his SI joint, no spinal or paraspinal tenderness. Will medicate patient with cyclobenzaprine will do x-ray. Is no acute processes will send patient home with cyclobenzaprine and to follow-up with pain management again. Patient reports that he does not want a Percocet as it upset his stomach. Reevaluation(s) Reevaluation #1: Patient will be sent home with cyclobenzaprine and ibuprofen. Patient reports relieves from cyclobenzaprine. He will follow-up with pain management next week. Patient is there patient. MDM - Back Pain/Injury Differential Diagnosis Differential diagnosis: Likely lumbar radiculopathy and strain of lumbar region Medical Records Attestation: I reviewed the patient's medical records. Imaging Data x-ray of spine: Radiologist's impression: FINDINGS: Lumbar vertebra have normal height and alignment. No evidence of fractures in the anterior or posterior elements. At L5-S1, there is mild narrowing of the disc space with mild endplate sclerosis and small osteophytes. Findings are similar to those seen on prior exam from 04/22/2021. Sacrum and sacroiliac joints are unremarkable. The soft tissues are grossly normal. XR/XR lumbar spine 2-3V IMPRESSION: *? No fracture or malalignment of the lumbar spine. *? Mild discovertebral degenerative change of L5-S1. ? Discharge Plan Discharge Clinical Impression: Sacroiliac joint pain, Muscle spasm, Strain of lumbar region Patient Disposition: Home, Self-Care Instructions: Lumbar Radiculopathy (ED), Musculoskeletal Pain (ED), Muscle Spasm (ED) Additional Instructions: Benja un seguimiento con choudhury cl?lolly de presi?n arterial y dolor en los pr?ximos 3 a 5 d?as. Enviar? a casa con ciclobenzaprina. Aseg?rese de no conducir yesi?n equipo pesado mientras jess emeka medicamento. Puede regresar al servicio de urgencias si experimenta un dolor cada vez mayor. Prescriptions: New cyclobenzaprine 10 mg tablet 10 mg PO BID PRN (Reason: muscle spasm) Qty: 20 0RF ibuprofen 600 mg tablet 600 mg PO Q8H PRN (Reason: pain) Qty: 20 0RF No Action lidocaine 5 % adhesive patch,medicated 1 patch topical DAILY 15 Days Qty: 15 0RF Rx Instructions: leave on most painful area for up to 12 hrs bupropion HCl 150 mg tablet extended release 24 hr 150 mg PO QAM 90 Days Qty: 90 0RF ibuprofen 600 mg tablet 600 mg PO Q6H PRN (Reason: pain) Qty: 20 0RF ibuprofen 600 mg tablet 600 mg PO TID PRN (Reason: pain) Qty: 14 0RF oxycodone 5 mg tablet 5 mg PO Q8H PRN (Reason: pain) Qty: 14 0RF albuterol sulfate 2.5 mg /3 mL (0.083 %) solution for nebulization 2.5 mg inhalation Q4-6H PRN (Reason: shortness of breath or wheezing) 30 Days Qty: 75 1RF (DME) Aeroneb Go Nebulizer Misc See Rx Instructions .Route Qty: 1 0RF Rx Instructions: As directed albuterol sulfate [ProAir HFA] 90 mcg/actuation HFA aerosol inhaler 2 puff inhalation Q6H PRN (Reason: shortness of breath or wheezing) 30 Days Qty: 6.7 2RF ondansetron HCl [Zofran] 4 mg tablet 4 mg PO Q8-12H PRN (Reason: nausea and vomiting) Qty: 10 0RF baclofen 5 mg tablet 5 mg PO BID PRN (Reason: muscle spasm) Qty: 60 1RF tizanidine 4 mg tablet 4 mg PO BEDTIME PRN (Reason: muscle spasticity) Qty: 30 0RF Referrals: Rafael Mariee MD [Physician] - 1 week Stand Alone Forms: Work/School Release
[2022-04-24] MEDS: Cyclobenzaprine HCl 10 MG TABLET PO (13:48)
== END 2022-04-24 15:20 | disposition home or self-care (01) ==
PROVIDERS: Emergency Provider Emergency Medicine; PCP Internal Medicine
DX: S39.012A Strain of muscle, fascia and tendon of lower back, initial encounter (principal); X50.0XXA Overexertion from strenuous movement or load, initial encounter; M53.3 Sacrococcygeal disorders, not elsewhere classified; M62.830 Muscle spasm of back; Y93.89 Activity, other specified; Y92.512 Supermarket, store or market as the place of occurrence of the external cause; Y99.0 Civilian activity done for income or pay
CPT/HCPCS: 72100; 99283

== ENCOUNTER 2022-09-19 03:11 | Emergency (ER) | payer OTHER, SELFPAY ==
--- NOTE | ~2022-09-19 | CT_ITS ---
EXAMINATION: CT LUMBAR SPINE WITHOUT CONTRAST CLINICAL INFORMATION: L5-S1 herniated disc. COMPARISON: 04/24/2022 TECHNIQUE: Multidetector volumetric imaging of the lumbar spine performed without IV contrast. Coronal and sagittal reformatted images are obtained and reviewed. This CT examination was performed using dose optimization techniques as appropriate, variously including the following: *Automated exposure control *Adjustment of mA and/or kV according to patient size (this includes techniques or standardized protocols for targeted exams where dose is matched to indication/reason for exam; i.e. extremities or head) *Use of iterative reconstruction technique DLP; 524 mGy-cm FINDINGS: No fracture or subluxation. Vertebral body height and alignment maintained. Disc spaces are maintained. The sacroiliac joints are symmetric. The sacrum is intact. Evaluation of disc levels is significantly limited on noncontrast CT . There appears to be a small disc bulge at L5-S1. There is likely mild narrowing of the right neural foramen. No suspicious findings in the visualized abdomen. The paraspinal musculature is symmetric. CT/CT lumbar spine wo IV con IMPRESSION: No acute osseous abnormality. Evaluation of disc levels is limited on noncontrast CT. There appears to be a small disc bulge at L5-S1 with likely mild narrowing of the right neural foramen. This can be evaluated further with MRI if clinically indicated.
[2022-09-19 03:19] VITALS: BP 162/121; PULSE 83; RESP 18; TEMP 36.7; O2SAT 96; BMI 38.0
[2022-09-19 03:36] VITALS: BP 132/76; PULSE 68; RESP 18
--- NOTE | 2022-09-19 03:50 | ED.BACK ---
HPI - Back Pain/Injury General Chief Complaint: Back Pain/Injury Stated Complaint: Lower back pain/pain in legs Time Seen by Provider: 09/19/22 03:19 Source: patient and family Mode of arrival: ambulatory Limitations: no limitations History of Present Illness HPI Narrative: Patient has chronic low back pain had MRI done 06/11 which showed L5-S1 disc herniation with mild to moderate mass effect on the right L5 foraminal nerve root been to pain clinic with steroid shot and physical therapy comes here for increasing pain for last few days getting worse with no recent injury pain radiates to both lower extremities increased on ambulation no motor weakness does not have any pain medication present has not followed up with his PCP no bladder or bowel involvement no sensory loss Related Data Previous Rx's Medication Instructions Recorded ibuprofen 600 mg tablet 600 mg PO Q6H PRN pain #20 tabs 02/08/21 albuterol sulfate 2.5 mg/3 mL 2.5 mg (3 mL) inhalation Q4-6H PRN 02/14/21 (0.083 %) solution for nebulization shortness of breath or wheezing 30 days #75 mL albuterol sulfate 90 mcg/actuation 2 puff inhalation Q6H PRN 02/14/21 aerosol inhaler (ProAir HFA) shortness of breath or wheezing 30 days #6.7 grams nebulizers (Aeroneb Go Nebulizer) #1 ea 02/14/21 lidocaine 5 % topical patch 1 patch topical DAILY 15 days #15 03/28/21 ea ibuprofen 600 mg tablet 600 mg PO TID PRN pain #14 tabs 04/22/21 oxycodone 5 mg tablet 5 mg PO Q8H PRN pain #14 tabs 04/22/21 bupropion HCl 150 mg 24 hr tablet, 150 mg PO QAM 90 days #90 tabs 05/08/21 extended release ondansetron HCl 4 mg tablet 4 mg PO Q8-12H PRN nausea and 06/24/21 (Zofran) vomiting #10 tabs tizanidine 4 mg tablet 4 mg PO BEDTIME PRN muscle 08/21/21 spasticity #30 tabs baclofen 5 mg tablet 5 mg PO BID PRN muscle spasm #60 10/15/21 tabs cyclobenzaprine 10 mg tablet 10 mg PO BID PRN muscle spasm #20 04/24/22 tabs ibuprofen 600 mg tablet 600 mg PO Q8H PRN pain #20 tabs 04/24/22 cyclobenzaprine 10 mg tablet 10 mg PO Q8H #20 tabs 09/19/22 ibuprofen 600 mg tablet 600 mg PO Q6H PRN fever or pain 09/19/22 #30 tabs oxycodone-acetaminophen 5 mg-325 1 tab PO Q6H PRN pain #20 tabs 09/19/22 mg tablet (Percocet) Allergies Allergy/AdvReac Type Severity Reaction Status Date / Time No Known Allergies Allergy Verified 09/19/22 03:22 Review of Systems Review of Systems: Yes all other systems are reviewed and are negative [facility] Past Medical History Medical History Asthma Class 1 obesity due to excess calories with body mass index (BMI) of 34.0 to 34.9 in adult Left sided sciatica Lumbar back pain with radiculopathy affecting left lower extremity Mild persistent asthma Mild recurrent major depression Obesity (BMI 35.0-39.9 without comorbidity) Protrusion of lumbar intervertebral disc Tenderness of scrotum Testicular cyst Surgical History No pertinent past surgical history Family History Family History Mother Hypertension Father No problems noted. Social History Social History Housing: House Alcohol intake: current Alcohol intake frequency: does not drink Alcohol type: beer Patient Tobacco Use Status: Current everyday Tobacco user Tobacco use type: Cigarette Cigarette Packs Per Day: 1 Cigarettes Per Day: 20 Smoked in Last 30 Days: Yes e-Cigarette/Vaping Use: Never Used Second Hand Smoke Exposure: No Use of substances other than those prescribed or required for medical reasons: Yes Substance Use Type: Marijuana Substance Use Frequency: Daily Advance Directives: No Advance Directives Information Provided: Yes service: No Current occupational status: employed Current occupational exposures/hazards: No Physical Exam Vital Signs: Vital Signs: Last Vital Signs Temp 98.0 F 09/19/22 03:19 Pulse 68 09/19/22 03:36 Resp 18 09/19/22 03:36 BP 132/76 09/19/22 03:36 Pulse Ox 96 09/19/22 03:19 O2 Del Method Room Air 09/19/22 03:19 BMI result Body Mass Index 38.0 Appearance: Alert. Oriented X3. In moderate distress Eyes: No pallor or icterus ENT: Pharynx normal. Oral Mucosa moist Neck: Normal inspection. Neck supple. CVS: Normal heart rate and rhythm. Pulses normal. Respiratory: No respiratory distress. Equal air entry bilateral, no wheezing/rales/rhonchi Abdomen: Soft and nontender. Bowel sounds are present, no mass palpable, no CVA tenderness Skin: Skin warm and dry. Normal skin color. Normal skin turgor. Back: Diffuse tenderness lumbar area Extremities: No lower extremity edema. No calf tenderness SLR positive both lower extremity at 45 degrees Neuro: Oriented X 3. No motor deficit. No sensory deficit.No cerebellar signs , cranial nerves II-XII intact Medications Administered Discontinued Medications Generic Name Dose Route Start Last Admin Trade Name Freq PRN Reason Stop Dose Admin Cyclobenzaprine HCl 10 mg 09/19/22 05:17 09/19/22 05:26 Cyclobenzaprine Hcl 10 Mg Tablet PO 09/19/22 05:18 10 mg ONCE ONE Administration Dexamethasone 10 mg 09/19/22 03:51 09/19/22 04:13 Dexamethasone 2 Mg Tablet PO 09/19/22 03:52 10 mg ONCE ONE Administration Morphine Sulfate 10 mg 09/19/22 03:51 09/19/22 04:13 Morphine Sulfate 10 Mg/Ml Cartridge IM 09/19/22 03:52 10 mg ONCE ONE Administration Protocol Oxycodone HCl 10 mg 09/19/22 05:11 09/19/22 05:26 Oxycodone Hcl Immed Release 5 Mg Tablet PO 09/19/22 05:12 10 mg ONCE ONE Administration Discharge Plan Discharge Clinical Impression: Lumbar radiculopathy Patient Disposition: Home, Self-Care Instructions: Lumbar Radiculopathy (ED) Additional Instructions: Take pain medications and muscle relaxant as prescribed Follow-up with neurosurgery/PCP Prescriptions: New cyclobenzaprine 10 mg tablet 10 mg PO Q8H Qty: 20 0RF oxycodone-acetaminophen [Percocet] 5-325 mg tablet 1 tab PO Q6H PRN (Reason: pain) Qty: 20 0RF Rx Instructions: Partial Fill upon patient request. ibuprofen 600 mg tablet 600 mg PO Q6H PRN (Reason: fever or pain) Qty: 30 0RF No Action lidocaine 5 % adhesive patch,medicated 1 patch topical DAILY 15 Days Qty: 15 0RF Rx Instructions: leave on most painful area for up to 12 hrs bupropion HCl 150 mg tablet extended release 24 hr 150 mg PO QAM 90 Days Qty: 90 0RF ibuprofen 600 mg tablet 600 mg PO Q6H PRN (Reason: pain) Qty: 20 0RF ibuprofen 600 mg tablet 600 mg PO TID PRN (Reason: pain) Qty: 14 0RF oxycodone 5 mg tablet 5 mg PO Q8H PRN (Reason: pain) Qty: 14 0RF cyclobenzaprine 10 mg tablet 10 mg PO BID PRN (Reason: muscle spasm) Qty: 20 0RF ibuprofen 600 mg tablet 600 mg PO Q8H PRN (Reason: pain) Qty: 20 0RF albuterol sulfate 2.5 mg /3 mL (0.083 %) solution for nebulization 2.5 mg inhalation Q4-6H PRN (Reason: shortness of breath or wheezing) 30 Days Qty: 75 1RF (DME) Aeroneb Go Nebulizer Misc See Rx Instructions .Route Qty: 1 0RF Rx Instructions: As directed albuterol sulfate [ProAir HFA] 90 mcg/actuation HFA aerosol inhaler 2 puff inhalation Q6H PRN (Reason: shortness of breath or wheezing) 30 Days Qty: 6.7 2RF ondansetron HCl [Zofran] 4 mg tablet 4 mg PO Q8-12H PRN (Reason: nausea and vomiting) Qty: 10 0RF baclofen 5 mg tablet 5 mg PO BID PRN (Reason: muscle spasm) Qty: 60 1RF tizanidine 4 mg tablet 4 mg PO BEDTIME PRN (Reason: muscle spasticity) Qty: 30 0RF Referrals: [facility] [Provider Group] - 2 weeks Interventions: ED Discharge Assessment Last Done: 09/19/22 05:40 Discharge Date/Time: 09/19/22 05:43
--- NOTE | 2022-09-19 03:52 | PC.NURSE ---
pt a&o, no sob or chest pain, pt report back pain and testicle pain. provider aware. pt waiting to be seen.
--- NOTE | 2022-09-19 04:03 | PC.NURSE ---
pt taken to Ct Scan
[2022-09-19] MEDS: dexAMETHasone 2 MG TABLET 10 MG PO (04:13)
[2022-09-19] MEDS: Morphine Sulfate 10 MG/ML CARTRIDGE IM (04:13)
[2022-09-19] MEDS: oxyCODONE HCl Immed Release 5 MG TABLET 10 MG PO (05:26)
[2022-09-19] MEDS: Cyclobenzaprine HCl 10 MG TABLET PO (05:26)
--- NOTE | 2022-09-19 05:28 | PC.NURSE ---
pt medicated per mar for pain management. Will continue to monitor.
--- NOTE | 2022-09-19 05:41 | PC.NURSE ---
Reviewed discharge instructions with pt, pt verbalized understanding. no sign of distress at discharge.
== END 2022-09-19 05:43 | disposition home or self-care (01) ==
PROVIDERS: Emergency Provider Internal Medicine; PCP Internal Medicine
DX: M54.16 Radiculopathy, lumbar region (principal); M54.50 Low back pain, unspecified; F17.210 Nicotine dependence, cigarettes, uncomplicated; F12.90 Cannabis use, unspecified, uncomplicated; E66.9 Obesity, unspecified; Z68.38 Body mass index [BMI] 38.0-38.9, adult; Z79.899 Other long term (current) drug therapy
CPT/HCPCS: 72131; 96372; 99284; J2270; J8540

== ENCOUNTER 2023-03-03 10:49 | Outpatient (AMB) | payer OTHER, SELFPAY ==
[2023-03-03 10:57] VITALS: BP 136/80; BMI 33.1
--- NOTE | 2023-03-03 10:57 | A.OFFPC_ITS ---
Vital Signs 03/03/23 10:57 Height 5 ft 8 in Weight 218 lb BMI 33.1 BP 136/80 Blood Pressure Location Lt brachial Position Sitting Intake Visit Reasons: discoloration of toes Intake Note: Patient here discoloration of nails and in between toes [employer] Required: No Accompanied by: Self / Same As Patient Allergies No Known Allergies Allergy (Verified 03/03/23 11:05) Medication List - Last Reconciled 03/03/23 by Katherin Ibry MD albuterol sulfate 90 mcg/actuation (ProAir HFA) 2 puffs inhalation Q6H PRN 30 days albuterol sulfate 2.5 mg (3 mL) inhalation Q4-6H PRN 30 days nebulizers (Aeroneb Go Nebulizer) As directed Tobacco use date assessed: 09/24/22 Dental Screening Dental Screen Date: 03/03/23 Did you have a dental visit in the last 12 months?: No Did you have a dental problem in the last 6 months where you did not have access to dental care?: No Was dental information given to patient?: Patient has dentist HPI HPI Comments History of Present Illness Details * This is a 37-year-old male with mild asthma that complains toes being itchy and with scaly skin between toes most likely due to athlete's foot. Denies any chest pain shortness breath. Use rescue inhaler less than once a month. [facility] Medical History Asthma Class 1 obesity due to excess calories with body mass index (BMI) of 34.0 to 34.9 in adult Left sided sciatica Lumbar back pain with radiculopathy affecting left lower extremity Mild persistent asthma Mild recurrent major depression Obesity (BMI 35.0-39.9 without comorbidity) Protrusion of lumbar intervertebral disc Tenderness of scrotum Testicular cyst Surgical History No pertinent past surgical history Family History Mother Hypertension Father No problems noted. Social History (Updated 03/03/23 @ 11:17 by Katherin Irby MD) Housing: House Alcohol intake: current Alcohol intake frequency: holidays/special occasions only Alcohol type: beer Patient Tobacco Use Status: Current everyday Tobacco user Tobacco use type: Cigarette Cigarette Packs Per Day: 1 Cigarettes Per Day: 20 e-Cigarette/Vaping Use: Never Used Second Hand Smoke Exposure: No Substance Use Type: Marijuana service: No Current occupational status: employed Current occupational exposures/hazards: No Cognitive needs: No Hearing needs: No Vision needs: No Questionnaire Thrive Questionnaire Date Thrive assessed: 09/24/22 JASVIR-7 AMB Questionnaire JASVIR-7 Date JASVIR - 7 assessed: 09/24/22 Source: Developed by Drs. Juan Erwin, Devi Ortiz, Hector Waite and colleagues, with an educational marco antonio from [employer]. Review of Systems Const All systems reviewed & are unremarkable except as noted in HPI and below Eyes Reports no additional complaints, Denies change in vision and Denies other visual disturbances Card Denies chest pain at rest, Denies chest pain with activity, Denies edema, Denies irregular heart rhythm, Denies claudication, Denies dyspnea, Denies dyspnea on exertion, Denies orthopnea, Denies paroxysmal nocturnal dyspnea and Denies slow heart rate Resp Denies cough, Denies dyspnea and Denies dyspnea on exertion GI Denies abdominal pain, Denies change in bowel habits, Denies excessive flatus, Denies nausea and Denies vomiting Denies urinary hesitancy, Denies urinary incontinence and Denies urinary urgency Musc Denies abnormal gait, Denies atrophy, Denies deformity and Denies limited range of motion Skin/Breast Denies bleeding lesions, Denies changing lesions and Denies rash Neuro Denies abnormal gait and Denies lack of coordination Physical exam (Primary Care) Vital Signs: Last Vital Signs BP 136/80 03/03/23 10:57 BMI result Body Mass Index 33.1 Tobacco/Smoking Status: Tobacco use Status Tobacco use date assessed 09/24/22 03/03/23 11:02 Patient Tobacco Use Status Current everyday Tobacco 03/03/23 11:02 Tobacco use type Cigarette 03/03/23 11:02 e-Cigarette/Vaping Use Never Used 03/03/23 11:02 Thrive Assessment: Date of Thrive Assessment Date Thrive assessed 09/24/22 03/03/23 11:02 Eyes General: appearance normal, both eyes and all related structures Eyelids: Yes eyelids normal Conjunctivae: conjunctivae normal Neck Neck: Yes normal visual inspection and Yes supple Resp Effort & Inspection: normal respiratory effort Auscultation: clear to auscultation bilaterally Cardio Jugular venous distension: no JVD Rate: regular rate Rhythm: regular rhythm Heart sounds: S1 normal heart sound present and S2 normal heart sound present Extrem General: Yes full ROM Assessment and Plan Assessment & Plan (1) Athletes foot: Code(s): B35.3 - Tinea pedis Plan: Start cream (2) Mild asthma: Code(s): J45.909 - Unspecified asthma, uncomplicated Plan: Use rescue inhaler as needed Orders: Orders Lipid Panel Today E78.5 - Hyperlipidemia, unspecified Comprehensive [place]. Panel Fast Today M47.816 - Spondylosis without myelopathy or radiculopathy, lumbar region Medications: New Ventolin HFA 90 mcg/actuation (albuterol sulfate) 2 puffs inhalation Q6H 30 days PRN 18 grams 1RF shortness of breath or wheezing NS J45.909 - Unspecified asthma, uncomplicated doxycycline hyclate 100 mg PO BID 10 tabs 0RF 5 days clotrimazole 1% (Athlete's Foot (clotrimazole)) 1 appl topical BID 2 weeks 30 grams 1RF Discontinued albuterol sulfate 90 mcg/actuation (ProAir HFA) Discontinued Reason: Patient Completed Course 2 puffs inhalation Q6H 30 days PRN 6.7 grams 2RF shortness of breath or wheezing Coding Level of Care Code Est Pt Level 3 (65211) Diagnoses Athletes foot B35.3 Mild asthma J45.909 Time Spent (min) 19
== END 2023-03-03 11:14 | disposition home or self-care (01) ==
PROVIDERS: PCP Internal Medicine; Visit Provider Internal Medicine
DX: B35.3 Tinea pedis (principal); J45.909 Unspecified asthma, uncomplicated
CPT/HCPCS: 99213

== ENCOUNTER 2023-03-30 09:56 | Outpatient (AMB) | payer OTHER, SELFPAY ==
--- NOTE | 2023-03-30 11:09 | MHC.OFFWIV ---
Intake Vital Signs 03/30/23 11:10 Height 5 ft 8 in Weight 222 lb BMI 33.8 BP 118/76 Blood Pressure Location Lt brachial Position Sitting Pulse 66 Pulse Source Pulse Oximeter Temp 98 F Temp Source Temporal Artery Scan Pulse Oximetry (%) 97 Oxygen Delivery Method Room Air Intake Visit Reasons: EP Asthma, headache, aches (masked) Lobby Intake Note: Patient here for fevers, eye pressure, chest pain and wheezing that have been present since Thursday. He is having issues sleeping at night. Patient Tobacco Use Status: Current everyday Tobacco user Allergies No Known Allergies Allergy (Verified 03/30/23 11:13) Do you need a note to return to daycare/school/sports/work: Yes HPI EP Asthma, headache, aches (masked) Lobby HPI Details Patient presents for a sick visit. Reporting symptoms of sinus congestion, sore throat and difficulty swallowing. Low-grade fever. No family member is sick. No recent travel. Patient reports symptoms of malaise and fatigue. [facility] Medical History Asthma Class 1 obesity due to excess calories with body mass index (BMI) of 34.0 to 34.9 in adult Left sided sciatica Lumbar back pain with radiculopathy affecting left lower extremity Mild persistent asthma Mild recurrent major depression Obesity (BMI 35.0-39.9 without comorbidity) Protrusion of lumbar intervertebral disc Tenderness of scrotum Testicular cyst Surgical History No pertinent past surgical history Family History Mother Hypertension Father No problems noted. Social History (Updated 03/03/23 @ 11:17 by Katherin Irby MD) Housing: House Alcohol intake: current Alcohol intake frequency: holidays/special occasions only Alcohol type: beer Patient Tobacco Use Status: Current everyday Tobacco user Tobacco use type: Cigarette Cigarette Packs Per Day: 1 Cigarettes Per Day: 20 e-Cigarette/Vaping Use: Never Used Second Hand Smoke Exposure: No Substance Use Type: Marijuana service: No Current occupational status: employed Current occupational exposures/hazards: No Cognitive needs: No Hearing needs: No Vision needs: No Physical Exam Vital Signs: Last Vital Signs Temp 98 F 03/30/23 11:10 Pulse 66 03/30/23 11:10 BP 118/76 03/30/23 11:10 Pulse Ox 97 03/30/23 11:10 Oxygen Delivery Method Room Air 03/30/23 11:10 BMI result Body Mass Index 33.8 Const General: cooperative and healthy appearing Nutritional Appearance: well nourished Orientation/consciousness: patient oriented x3 Limitations: no limitations HEENT Head: Yes normal to inspection Eyes General: appearance normal, both eyes and all related structures Neck Neck: Yes normal visual inspection Chest Other: Scattered wheeze bilaterally. Chest palpation & inspection: normal palpation of entire chest wall Resp Effort & Inspection: normal respiratory effort Neuro General: patient oriented x3 Office Procedures Nebulizer Treatment Nebulizer Treatment [id number] RX initial, or Nebulizer Subsequent Treatment Office Meds albuterol sulfate 2.5 mg/3 mL (0.083 %) solution for nebulization Performing Provider: Jona Razo MD Performing Location: [facility] Administered by: Sabrina Chen RN on 03/30/23 11:43 Dose Route Admin Location Dispensed Lot Number Expiration Date NDC Dietary Aid 2.5 mg inhalation 3 mL [id number] 08/20/24 76657-097-02 [employer] Assessment & Plan Assessment & Plan (1) Mild asthma: Code(s): J45.909 - Unspecified asthma, uncomplicated Plan: Azithromycin, prednisone and albuterol called in. Patient tolerated the nebulizer. Orders: Orders AMB Nebulizer Treatment Today J45.909 - Unspecified asthma, uncomplicated Coding Level of Care Code Est Pt Level 4 (92879) Diagnoses Mild asthma J45.909 CPT Codes Nebulizer Treatment - Nebulizer Treatment, initial or subsequent: [id number] RX initial, or Nebulizer Subsequent Treatment ([id number])
[2023-03-30 11:10] VITALS: BP 118/76; PULSE 66; TEMP 36.6; O2SAT 97; BMI 33.8
== END 2023-03-30 12:03 | disposition home or self-care (01) ==
PROVIDERS: PCP Internal Medicine; Visit Provider Internal Medicine
DX: J45.909 Unspecified asthma, uncomplicated (principal)
CPT/HCPCS: 94640; 99214; J7613

== ENCOUNTER 2023-09-11 09:10 | Outpatient (AMB) | payer OTHER, SELFPAY ==
--- NOTE | 2023-09-11 09:21 | MHC.OFFWIV ---
Intake Vital Signs 09/11/23 09:22 Weight 228 lb BP 120/80 Blood Pressure Location Lt brachial Position Sitting Pulse 88 Pulse Source Pulse Oximeter Temp 98.5 F Temp Source Oral Pulse Oximetry (%) 98 Oxygen Delivery Method Room Air Intake Visit Reasons: EP loose stool vomiting (lobby) Intake Note: Patient here for left abdomen pain, vomiting and diarrhea which has been going on since yesterday morning. Pt states he ended up vomiting about 5 times and was clear. Patient Tobacco Use Status: Current everyday Tobacco user Allergies No Known Allergies Allergy (Verified 09/11/23 09:26) Do you need a note to return to daycare/school/sports/work: Yes HPI EP loose stool vomiting (lobby) HPI Details This is a 37 year old female patient who presents today with vomiting/nausea since yesterday. He states he and his both had similar symptoms. 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 He states he had vomiting and diarrhea yesterday x5 times each. Today he still has nausea and some soft stool, however no vomiting or diarrhea. He has some abdominal cramping. Denies fever however has felt some chills. [facility] Medical History Protrusion of lumbar intervertebral disc Tenderness of scrotum Lumbar back pain with radiculopathy affecting left lower extremity Class 1 obesity due to excess calories with body mass index (BMI) of 34.0 to 34.9 in adult Mild persistent asthma Mild recurrent major depression Left sided sciatica Obesity (BMI 35.0-39.9 without comorbidity) Testicular cyst Asthma Surgical History No pertinent past surgical history Family History Mother Hypertension Father No problems noted. Social History Housing: House Alcohol intake: current Alcohol intake frequency: holidays/special occasions only Alcohol type: beer Patient Tobacco Use Status: Current everyday Tobacco user Tobacco use type: Cigarette Cigarette Packs Per Day: 1 Cigarettes Per Day: 20 e-Cigarette/Vaping Use: Never Used Second Hand Smoke Exposure: No Substance Use Type: Marijuana service: No Current occupational status: employed Current occupational exposures/hazards: No Cognitive needs: No Hearing needs: No Vision needs: No Review of Systems Const All systems reviewed & are unremarkable except as noted in HPI and below Physical Exam Vital Signs: Last Vital Signs Temp 98.5 F 09/11/23 09:22 Pulse 88 09/11/23 09:22 BP 120/80 09/11/23 09:22 Pulse Ox 98 09/11/23 09:22 Oxygen Delivery Method Room Air 09/11/23 09:22 Const General: cooperative and no acute distress Resp Effort & Inspection: normal respiratory effort Auscultation: clear to auscultation bilaterally Cardio Jugular venous distension: no JVD Palpation: normal PMI Rate: regular rate Rhythm: regular rhythm GI Inspection: Yes normal to inspection Palpation (GI): Soft to palpation (nontender) and No hepatosplenomegaly present Auscultation: normal bowel sounds Skin General skin exam: no rashes or lesions noted Extrem General: Yes capillary refill normal and Yes no clubbing, cyanosis or edema Psych Appearance: grossly normal Mental Status: mental status grossly normal Speech and movement: Normal speech and movement present Assessment & Plan Assessment & Plan (1) Viral gastroenteritis: Code(s): A08.4 - Viral intestinal infection, unspecified Plan: This seems to be resolving. I will prescribe Zofran and Loperamide for residual symptoms. Advised patient to not take Loperamide unless his diarrhea recurs. We reviewed indications, use, possible s/e of medications. Advised increased hydration, and bland diet to be advanced as tolerated. Work note provided. If he does not improve with time and conservative measures, or if symptoms worsen, he can return to the clinic or go to the ED for evaluation. Patient verbalizes understanding and agrees to plan. Medications: New ondansetron HCl 4 mg PO Q8H PRN 10 tabs 0RF nausea and vomiting A08.4 - Viral intestinal infection, unspecified loperamide Take one capsule after each loose stool, every 6 hours as needed. 2 mg PO Q6H PRN 8 caps 0RF loose stool 2 days A08.4 - Viral intestinal infection, unspecified Coding Level of Care Code Est Pt Level 3 (38730) Diagnoses Viral gastroenteritis A08.4
[2023-09-11 09:22] VITALS: BP 120/80; PULSE 88; TEMP 36.9; O2SAT 98
== END 2023-09-11 10:01 | disposition home or self-care (01) ==
PROVIDERS: PCP Internal Medicine; Visit Provider Nurse Practitioner Family
DX: A08.4 Viral intestinal infection, unspecified (principal)
CPT/HCPCS: 99213

== ENCOUNTER 2023-09-25 09:39 | Outpatient (AMB) | payer OTHER, SELFPAY ==
[2023-09-25 09:40] VITALS: BP 124/72; PULSE 72; TEMP 36.4; O2SAT 97; BMI 34.1
--- NOTE | 2023-09-25 09:40 | AM.OFFWIN_ITS ---
Intake Vital Signs 09/25/23 09:40 Height 5 ft 8 in Weight 224 lb BMI 34.1 BP 124/72 Blood Pressure Location Lt brachial Position Sitting Pulse 72 Pulse Source Pulse Oximeter Temp 97.5 F Temp Source Temporal Artery Scan Pulse Oximetry (%) 97 Oxygen Delivery Method Room Air Intake Visit Reasons: EP Stomach pain Intake Note: pt is here today for stomach pain started 4 days ago Patient Tobacco Use Status: Current everyday Tobacco user Allergies No Known Allergies Allergy (Verified 09/25/23 09:43) Do you need a note to return to daycare/school/sports/work: No HPI HPI Comments History of Present Illness Details This is a 37-year-old male who presented to the walk-in clinic complaining of abdominal cramping with nausea/vomiting/diarrhea x3 days. Patient reports mild epigastric abdominal cramping with associated diarrhea several times a day as well as a few episodes of nausea/vomiting. He denies any fever/chills. He denies any melena/hematochezia. He denies any abnormal or unusual food exposures. He denies any recent travel. [facility] Medical History Protrusion of lumbar intervertebral disc Tenderness of scrotum Lumbar back pain with radiculopathy affecting left lower extremity Class 1 obesity due to excess calories with body mass index (BMI) of 34.0 to 34.9 in adult Mild persistent asthma Mild recurrent major depression Left sided sciatica Obesity (BMI 35.0-39.9 without comorbidity) Testicular cyst Asthma Surgical History No pertinent past surgical history Family History Mother Hypertension Father No problems noted. Social History Housing: House Alcohol intake: current Alcohol intake frequency: holidays/special occasions only Alcohol type: beer Patient Tobacco Use Status: Current everyday Tobacco user Tobacco use type: Cigarette Cigarette Packs Per Day: 1 Cigarettes Per Day: 20 e-Cigarette/Vaping Use: Never Used Second Hand Smoke Exposure: No Substance Use Type: Marijuana service: No Current occupational status: employed Current occupational exposures/hazards: No Cognitive needs: No Hearing needs: No Vision needs: No Review of Systems Const All systems reviewed & are unremarkable except as noted in HPI and below Reports no additional complaints Eyes Reports no additional complaints ENT Reports no additional complaints Card Reports no additional complaints Resp Reports no additional complaints GI Reports no additional complaints Reports no additional complaints Musc Reports no additional complaints Skin/Breast Reports system reviewed and no additional complaints, except as documented Neuro Reports no additional complaints Psych Reports no additional complaints Endo Reports no additional complaints Aleksandar/Lymph Reports no additional complaints Aller/Immun Reports no additional complaints Physical Exam Vital Signs: Last Vital Signs Temp 97.5 F 09/25/23 09:40 Pulse 72 09/25/23 09:40 BP 124/72 09/25/23 09:40 Pulse Ox 97 09/25/23 09:40 Oxygen Delivery Method Room Air 09/25/23 09:40 BMI result Body Mass Index 34.1 Const Other: Vital signs reviewed. Constitutional: Non-toxic appearing. No acute distress. Well-developed and well-nourished. HEENT: Normocephalic and atraumatic. Skin: Warm and dry. No rashes or lesions noted. Neck: Full and painless range of motion. No cervical lymphadenopathy. Cardio: Regular rate. No lower extremity edema. No JVD. Pulmonary: No respiratory distress. No accessory muscle usage. Gastrointestinal: His abdomen is soft and nondistended. He has mild tenderness to palpation of the epigastric/umbilical region. His bowel sounds are hypoactive but he has bowel sounds throughout.s. Musculoskeletal: Normal range of motion in joints throughout the body. No deformity or other signs of injury. Neuro: Alert and oriented x4. Cranial nerves 2-12 grossly intact. No focal d eficits appreciated. Psych: Normal mood and affect. Assessment & Plan Assessment & Plan (1) Viral gastroenteritis: Code(s): A08.4 - Viral intestinal infection, unspecified Plan: This is a 37-year-old male who presents to the office complaining of mild abdominal cramping with nausea/vomiting/diarrhea. On physical examination, his bowel sounds are hypoactive but he has bowel sounds throughout. He denies any prior abdominal surgeries. History and physical most consistent with acute viral gastroenteritis. I have low suspicion for acute surgical abdomen such as appendicitis or cholecystitis given non localized tenderness to palpation and I have low suspicion for small-bowel obstruction given bowel sounds are active and he is having bowel movements. Patient given prescriptions for PO ondansetron 4 mg every 8 hours as needed for nausea/vomiting, PO dicyclomine 20 mg 3 times daily as needed for abdominal pain/cramping, and PO loperamide 2 mg every 6 hours as needed for diarrhea/loose stools. Patient was instructed to increase his fluid/electrolyte intake and to eat a bland diet as tolerated. Patient was advised to proceed to the emergency room if his symptoms were to continue despite symptomatic management for possible imaging and IV hydration. Patient verbalizes understanding and he is in agreement with the plan. Medications: New ondansetron 4 mg PO Q8H PRN 14 tabs 0RF nausea and vomiting dicyclomine 20 mg PO TID PRN 14 tabs 0RF abdominal pain Refilled loperamide Take one capsule after each loose stool, every 6 hours as needed. 2 mg PO Q6H 2 days PRN 8 caps 0RF loose stool A08.4 - Viral intestinal infection, unspecified Coding Level of Care Code Est Pt Level 3 (13448) Diagnoses Viral gastroenteritis A08.4
== END 2023-09-25 10:12 | disposition home or self-care (01) ==
PROVIDERS: PCP Internal Medicine; Visit Provider Physician Assistant Medical
DX: A08.4 Viral intestinal infection, unspecified (principal)
CPT/HCPCS: 99213

== ENCOUNTER 2024-02-01 15:08 | Outpatient (AMB) | payer OTHER, SELFPAY ==
--- NOTE | 2024-02-01 15:31 | MHC.OFFVISPS ---
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 pt reports feeling sad and fury. feels it is hard to contain fury. Pt reports he does not like medications due to bad side effects in the past. He reports other medicaine caused him to sleep all day. He likes to wake up at 4 am and has a routine before he goes to work; he often only sleeps 4-5 hours; He agree to try to get close to 7 hours of sleep. He says was seeing a therapist at [facility] for 7 years. Unclear if this is true now or was in past. Past Psychiatric History: outpt tx only Subjective Subjective Subjective Medication Compliance: Yes Side effects from medications: No Review of Systems Medical Review of Systems: unchanged Mental Status Exam Mental Status Exam Patient Appearance: Well Grooomed, Perspiring and Appropriate Patient Orientation: Person, Place, Time and Situation Level of Consciousness: Awake Patient Behavior: Appropriate Mood Description: Depressed Affect Description: Depressed Ability to Follow Directions: Good Speech Pattern: Clear Hallucinations: None Delusions: Not Present Thought Process: Intact Thought Content: positive for Intact Judgement: Fair Assessment and Plan Assessment & Plan (1) Mood disorder: Status: Acute Code(s): F39 - Unspecified mood [affective] disorder Plan rule out Bipolar Disorder vs MDD start VPA er 250 mg at bedtime x 10 days and if no side effects increase to 500mg at bedtime return in 1 month Medications: New divalproex ER (Depakote ER) 250 mg orally Take one tablet every night 30 minutes before bedtime x 10 days and if no side effects increase to 2 tablets 30 min before bedtime 60 tabs 0RF Counseling and coordination of Care Pt. Self Management counseling: General coping skills Medication management counseling: Effectiveness, Side effects, Dosing range, Duration, Drug interaction and Adherence Diagnosis and Prognosis Counseling: Accuracy of diagnosis, Prognosis over time and Adequacy of current interventions Details: I spent [55] minutes reviewing the record, seeing the patient and documenting in the medical record. Counseling provided to the patient/caregiver as outlined below. Addressed patient/caregiver concerns regarding current medication regime including effective adherence. Addressed patient/caregiver concerns regarding diagnosis and prognosis including accuracy of diagnosis, prognosis over time, impact of diagnosis. Addressed patient/caregiver concerns regarding impact of recent stressors. [facility] Medical History Protrusion of lumbar intervertebral disc Tenderness of scrotum Lumbar back pain with radiculopathy affecting left lower extremity Class 1 obesity due to excess calories with body mass index (BMI) of 34.0 to 34.9 in adult Mild persistent asthma Mild recurrent major depression Left sided sciatica Obesity (BMI 35.0-39.9 without comorbidity) Testicular cyst Asthma Surgical History No pertinent past surgical history Family History Mother Hypertension Father No problems noted. Social History Housing: House Alcohol intake: current Alcohol intake frequency: holidays/special occasions only Alcohol type: beer Patient Tobacco Use Status: Current everyday Tobacco user Tobacco use type: Cigarette Cigarette Packs Per Day: 1 Cigarettes Per Day: 20 e-Cigarette/Vaping Use: Never Used Second Hand Smoke Exposure: No Substance Use Type: Marijuana service: No Current occupational status: employed Current occupational exposures/hazards: No Cognitive needs: No Hearing needs: No Vision needs: No Social History: lives with Substance History: denies Trauma History: denies Coding Level of Care Code Psych Diag Eval w/Med (14060) Diagnoses Mood disorder F39
== END 2024-02-01 15:45 | disposition home or self-care (01) ==
LOC: HO.HOP 15:08
PROVIDERS: PCP Internal Medicine; Visit Provider Clinical Nurse Specialist Psychiatric/Mental Health
DX: F39 Unspecified mood [affective] disorder (principal)
CPT/HCPCS: 90792

== ENCOUNTER → 2024-02-01 15:08 | Outpatient (BNVA) | payer OTHER, SELFPAY | PROVIDERS: PCP Internal Medicine; Visit Provider Clinical Nurse Specialist Psychiatric/Mental Health | DX: F39 Unspecified mood [affective] disorder (principal) | CPT/HCPCS: 90792 ==

== ENCOUNTER 2024-03-09 12:24 | Outpatient (AMB) | payer OTHER, SELFPAY ==
--- NOTE | 2024-03-09 12:34 | A.OFFPC_ITS ---
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 Accompanied by: Spouse Allergies No Known Allergies Allergy (Verified 03/09/24 12:47) Medication List - Last Reconciled 03/09/24 by Katherin Irby MD albuterol sulfate 2.5 mg (3 mL) inhalation Q4-6H PRN 30 days divalproex ER (Depakote ER) 500 mg (2 x 250 mg) PO BEDTIME nebulizers (Aeroneb Go Nebulizer) As directed Ventolin HFA 90 mcg/actuation (albuterol sulfate) 2 puffs inhalation Q6H PRN 30 days NS Tobacco use date assessed: 03/09/24 Dental Screening Dental Screen Date: 03/09/24 Did you have a dental visit in the last 12 months?: Yes Did you have a dental problem in the last 6 months where you did not have access to dental care?: No Was dental information given to patient?: Patient has dentist HPI HPI Comments History of Present Illness Details This is a 38-year-old male with mood disorder that comes for his physical exam accompanied by . Mood disorder is follow by psych outpatient services in [facility]. They put him in Depakote but he refused to take any medications. He has a skin lesion in right shoulder after having an abscess and will be referred to surgery. He is obese and was advised to diet and exercise. No chest pain or shortness on breath. [facility] Medical History (Updated 03/09/24 @ 14:50 by Katherin Irby MD) Protrusion of lumbar intervertebral disc Tenderness of scrotum Lumbar back pain with radiculopathy affecting left lower extremity Class 1 obesity due to excess calories with body mass index (BMI) of 34.0 to 34.9 in adult Mild persistent asthma Mild recurrent major depression Left sided sciatica Obesity (BMI 35.0-39.9 without comorbidity) Testicular cyst Asthma Surgical History No pertinent past surgical history Family History (Updated 03/09/24 @ 13:03 by Katherin Irby MD) Mother Hypertension Diabetes mellitus CKD (chronic kidney disease) Father No problems noted. Social History Housing: House Alcohol intake: current Alcohol intake frequency: holidays/special occasions only Alcohol type: beer Patient Tobacco Use Status: Current everyday Tobacco user Tobacco use type: Cigarette Cigarette Packs Per Day: 1 Cigarettes Per Day: 20 e-Cigarette/Vaping Use: Never Used Second Hand Smoke Exposure: No Substance Use Type: Marijuana service: No Current occupational status: employed Current occupational exposures/hazards: No Cognitive needs: No Hearing needs: No Vision needs: No Questionnaire PHQ-9 Over the last 2 weeks, how often have you been bothered by any of the following problems? 1. Little interest or pleasure in doing things: nearly every day 2. Feeling down, depressed, or hopeless: nearly every day 3. Trouble falling or staying asleep, or sleeping too much: several days 4. Feeling tired or having little energy: nearly every day 5. Poor appetite or overeating: nearly every day 6. Feeling bad about yourself - or that you are a failure or have let yourself or your family down: nearly every day 7. Trouble concentrating on things, such as reading the newspaper or watching television: nearly every day 8. Moving or speaking so slowly that other people could have noticed. Or the opposite - being so fidgety or restless that you have been moving around a lot more than usual: nearly every day 9. Thoughts that you would be better off or of hurting yourself in some way: more than half the days Total score: 24 Depression Screening Interpretation: Positive Depression Screening Follow-up: Existing condition and Follow-up Visit Requested Depression Screening Done: Yes Source: Developed by Drs. Juan Erwin, Devi Ortiz, Hector Waite and colleagues, with an educational marco antonio from [employer]. Thrive Questionnaire Date Thrive assessed: 03/09/24 I am a: Patient What is your living situation today?: I have a steady place to live Within the past 12 months, did the food you bought not last and you didn't have the money to get more?: I choose not to answer this question Within the past 12 months, did you worry whether your food would run out before you got money to buy more?: I choose not to answer this question Do you have trouble paying for medicines?: No Do you have trouble getting transportation to medical appointments?: Yes Do you have trouble paying your heating and electricity bill?: Yes Do you have trouble taking care of your child, family member or friend?: I choose not to answer this question Do you have trouble with day-to-day activities such as bathing, preparing meals, shopping, managing finances, etc.?: No Are you currently unemployed and looking for a job?: Yes Are you interested in more education?: No Please select the resources that you would like help with: None Currently or been in a relationship where the following occur: I choose not to answer THRIVE Score: 2 AUDIT C Alcohol Use Questionnaire (AUDIT-C) 1. How often do you have a drink containing alcohol?: Monthly or less 2. How many drinks containing alcohol do you have on a typical day when you are drinking?: 1 or 2 3. How often do you have six or more drinks on one occasion?: Never Total Score: 1 JASVIR-7 AMB Questionnaire JASVIR-7 Date JASVIR - 7 assessed: 03/09/24 Feeling nervous, anxious, or on edge: 3 = Nearly every day Not being able to stop or control worryin = Nearly every day Worrying too much about different things: 3 = Nearly every day Trouble relaxin = Nearly every day Being so restless that it is hard to sit still: 3 = Nearly every day Becoming easily annoyed or irritable: 3 = Nearly every day Feeling afraid as if something awful might happen: 3 = Nearly every day Total JASVIR-7 score (0-4 normal; 5-9 mild; 10-14 moderate; 15-21 severe): 21 Source: Developed by Drs. Juan Erwin, Devi Ortiz, Hector Waite and colleagues, with an educational marco antonio from [employer]. JASVIR-7 Assessment Billing JASVIR-7 Assessment Tool: JASVIR-7 Assessment 78449 Review of Systems Const All systems reviewed & are unremarkable except as noted in HPI and below Card Denies chest pain at rest, Denies chest pain with activity, Denies edema, Denies irregular heart rhythm, Denies claudication, Denies dyspnea, Denies dyspnea on exertion, Denies orthopnea, Denies paroxysmal nocturnal dyspnea and Denies slow heart rate Resp Denies cough, Denies dyspnea and Denies dyspnea on exertion GI Denies abdominal pain, Denies change in bowel habits, Denies excessive flatus, D enies nausea and Denies vomiting Physical exam (Primary Care) Vital Signs: Last Vital Signs BP 130/82 03/09/24 12:35 BMI result Body Mass Index 33.9 BMI Assessment/Plan discussion: High BMI High, discussed plan: lifestyle, weight reduction, dietary and physical activity Tobacco/Smoking Status: Tobacco use Status Tobacco use date assessed 03/09/24 03/09/24 12:41 Patient Tobacco Use Status Current everyday Tobacco 03/09/24 12:41 Tobacco use type Cigarette 03/09/24 12:41 e-Cigarette/Vaping Use Never Used 03/09/24 12:41 PHQ-9: PHQ-9 Score PHQ-9: Total score 03/09/24 14:47 Depression Screening Interpretation: Positive Depression Screening Follow-up: Existing condition and Follow-up Visit Requested Thrive Assessment: Date of Thrive Assessment Date Thrive assessed 03/09/24 03/09/24 12:41 Currently or been in a relationship where the following occur: I choose not to answer HENID Head: Yes normal to inspection, Yes normocephalic and Yes atraumatic Ears: external ears normal Eyes General: appearance normal, both eyes and all related structures Eyelids: Yes eyelids normal Conjunctivae: conjunctivae normal Neck Neck: Yes normal visual inspection and Yes supple Resp Effort & Inspection: normal respiratory effort Auscultation: clear to auscultation bilaterally Cardio Jugular venous distension: no JVD Rate: regular rate Rhythm: regular rhythm Heart sounds: S1 normal heart sound present and S2 normal heart sound present GI Inspection: Yes normal to inspection Palpation (GI): Soft to palpation and nontender Auscultation: normal bowel sounds Skin Lesions: lesion noted Neuro General: no focal motor deficits Extrem General: Yes full ROM Psych Appearance: grossly normal Immunizations Boostrix Tdap 2.5 Lf unit-8 mcg-5 Lf/0.5 mL intramuscular syringe Performing Provider: Katherin Irby MD Performing Location: [facility] Administered by: SHARON Díaz on 03/09/24 13:15 Dose Route Admin Location Dispensed Lot Number Expiration Date [facility] 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 (2) Mood disorder: Code(s): F39 - Unspecified mood [affective] disorder Plan: Follow-up with psychiatry. (3) Lump of skin: Code(s): R22.9 - Localized swelling, mass and lump, unspecified Plan: Surgery referral done. Orders: Orders Comprehensive [place]. Panel Fast Today Z00.00 - Encounter for general adult medical examination without abnormal findings Lipid Panel Today Z00.00 - Encounter for general adult medical examination without abnormal findings TDaP Immunization Today Z23 - Encounter for immunization Referrals General Surgery Referral R22.9 - Localized swelling, mass and lump, unspecified Medications: Refilled Ventolin HFA 90 mcg/actuation (albuterol sulfate) 2 puffs inhalation Q6H PRN 18 grams 1RF shortness of breath or wheezing 30 days NS J45.909 - Unspecified asthma, uncomplicated Coding Level of Care Code Est Pt Level 3 (10125) Est Pt Prev Care 18-39y(32716) Diagnoses Physical exam Z00.00 Mood disorder F39 Lump of skin R22.9 Additional Codes JASVIR-7 Assessment Billing - JASVIR-7 Assessment Tool: JASVIR-7 Assessment 44046 ([id number]) Time Spent (min) 35
[2024-03-09 12:35] VITALS: BP 130/82; BMI 33.9
== END 2024-03-09 13:15 | disposition home or self-care (01) ==
PROVIDERS: PCP Internal Medicine; Visit Provider Internal Medicine
DX: Z00.00 Encounter for general adult medical examination without abnormal findings (principal); F39 Unspecified mood [affective] disorder; R22.9 Localized swelling, mass and lump, unspecified; Z23 Encounter for immunization

== ENCOUNTER → 2024-03-09 12:24 | Outpatient (BNVA) | payer OTHER, SELFPAY | PROVIDERS: PCP Internal Medicine; Visit Provider Internal Medicine | DX: Z00.01 Encounter for general adult medical examination with abnormal findings (principal); Z23 Encounter for immunization; R22.9 Localized swelling, mass and lump, unspecified; F39 Unspecified mood [affective] disorder | CPT/HCPCS: 90471; 90715; 96127; 99396 ==

== ENCOUNTER 2024-03-31 21:31 | Emergency (ER) | payer OTHER, SELFPAY ==
--- NOTE | ~2024-03-31 | XR_ITS ---
EXAMINATION: XR CHEST CLINICAL INFORMATION: Metal object and left-sided chest COMPARISON: None available. TECHNIQUE: Frontal view of the chest was obtained. FINDINGS/ XR/XR chest 1V IMPRESSION: No significant abnormality is noted involving the heart, lungs, mediastinum, bony thorax or soft tissues. Approximately 4 mm linear radiopaque density projecting over the left lateral chest wall, approximately around the seventh or eighth rib. For further confirmation, recommend additional views. Electronically signed by: Christopher Scott DO 03/31/2024 11:25 PM EDT RP
[2024-03-31 21:34] VITALS: BP 142/89; PULSE 77; RESP 20; TEMP 36.8; O2SAT 100; BMI 35.2
[2024-03-31 21:58] VITALS: BP 134/86; PULSE 58; RESP 16; TEMP 36.7; O2SAT 98
--- NOTE | 2024-03-31 23:17 | ED_ITS ---
HPI - Wound/Laceration General Chief Complaint: Wound/Laceration Stated Complaint: left side wound at work Time Seen by Provider: 03/31/24 22:47 Source: patient Mode of arrival: ambulatory Limitations: no limitations History of Present Illness ED Provider: carlos HAMLIN narrative: Apparently patient was at work was smashing two metal pieces and a small chip of the metal striked his left front of chest and since then been oozing continuesly from the puncture wounds Related Data Previous Rx's ?Medication ?Instructions ?Recorded albuterol sulfate 2.5 mg/3 mL 2.5 mg (3 mL) inhalation Q4-6H PRN 02/14/21 (0.083 %) solution for nebulization shortness of breath or wheezing 30 days #75 mL nebulizers (Aeroneb Go Nebulizer) #1 ea 02/14/21 divalproex 250 mg tablet,extended 500 mg (2 x 250 mg) PO BEDTIME #60 03/01/24 release 24 hr (Depakote ER) tabs Ventolin HFA 90 mcg/actuation 2 puff inhalation Q6H PRN 03/09/24 aerosol inhaler (albuterol sulfate) shortness of breath or wheezing 30 days #18 grams Allergies Allergy/AdvReac Type Severity Reaction Status Date / Time No Known Allergies Allergy Verified 03/31/24 21:39 Review of Systems 2 Review of Systems: Yes all other systems are reviewed and are negative PMFSH Past Medical History Medical History Protrusion of lumbar intervertebral disc Tenderness of scrotum Lumbar back pain with radiculopathy affecting left lower extremity Class 1 obesity due to excess calories with body mass index (BMI) of 34.0 to 34.9 in adult Mild persistent asthma Mild recurrent major depression Left sided sciatica Obesity (BMI 35.0-39.9 without comorbidity) Testicular cyst Asthma Surgical History No pertinent past surgical history Family History Family History Mother Hypertension Diabetes mellitus CKD (chronic kidney disease) Father No problems noted. Social History Social History Housing: House Alcohol intake: current Alcohol intake frequency: holidays/special occasions only Alcohol type: beer Patient Tobacco Use Status: Current everyday Tobacco user Tobacco use type: Cigarette Cigarette Packs Per Day: 1 Cigarettes Per Day: 20 e-Cigarette/Vaping Use: Never Used Second Hand Smoke Exposure: No Substance Use Type: Marijuana Advance Directives: No Advance Directives Information Provided: Yes service: No Current occupational status: employed Current occupational exposures/hazards: No Cognitive needs: No Hearing needs: No Vision needs: No Physical Exam 2 Vital Signs: Vital Signs: Last Vital Signs Temp 98.1 F 03/31/24 23:28 Pulse 58 03/31/24 23:28 Resp 16 03/31/24 23:28 BP 134/86 03/31/24 23:28 Pulse Ox 98 03/31/24 23:28 O2 Del Method Room Air 03/31/24 23:28 BMI result Body Mass Index 35.2 Chest: Chest/axillae images: 1. Small puncture wound about 3 mm in size oozing small amount of blood no deeper injury Medical Decision Making Medical Decision Making MDM Narrative: Oozing wound was cauterized using silver nitrate bleeding stopped will discharge patient home Discharge Plan Discharge Clinical Impression: Puncture wound of anterior chest wall Patient Disposition: Home, Self-Care Instructions: Puncture Wound (ED) Additional Instructions: Local care as advised Prescriptions: No Action divalproex [Depakote ER] 250 mg tablet extended release 24 hr 500 mg PO BEDTIME Qty: 60 1RF albuterol sulfate 2.5 mg /3 mL (0.083 %) solution for nebulization 2.5 mg inhalation Q4-6H PRN (Reason: shortness of breath or wheezing) 30 Days Qty: 75 1RF (DME) Aeroneb Go Nebulizer Misc See Rx Instructions .Route Qty: 1 0RF Rx Instructions: As directed albuterol sulfate [Ventolin HFA] 90 mcg/actuation HFA aerosol inhaler 2 puff inhalation Q6H PRN (Reason: shortness of breath or wheezing) 30 Days Qty: 18 1RF Interventions: ED Discharge Assessment Last Done: 03/31/24 23:28 Discharge Date/Time: 03/31/24 23:28 Print Language: Latvian
[2024-03-31 23:28] VITALS: BP 134/86; PULSE 58; RESP 16; TEMP 36.7; O2SAT 98
== END 2024-03-31 23:28 | disposition home or self-care (01) ==
PROVIDERS: Emergency Provider Internal Medicine; PCP Internal Medicine
DX: S21.132A Puncture wound without foreign body of left front wall of thorax without penetration into thoracic cavity, initial encounter (principal); R07.89 Other chest pain; W26.9XXA Contact with unspecified sharp object(s), initial encounter; Y93.89 Activity, other specified; Y92.89 Other specified places as the place of occurrence of the external cause; Y99.0 Civilian activity done for income or pay
CPT/HCPCS: 71045; 99283